=== PATIENT | female | born 1990 | race Caucasian/White ===

== ENCOUNTER 2019-07-02 15:23 | Outpatient (CLI) | payer OTHER, SELFPAY ==
--- NOTE | 2019-07-02 | US_ITS ---
WS: [id number] THYROID ULTRASOUND HISTORY: FATIGUE, HYPOTHYROID COMPARISON: None available. Right lobe: 4.9 cm x 1.6 cm x 1.6 cm. Volume: 6.4 cm3. Thyroid gland is slightly enlarged and heterogeneous with tiny micronodules. Increased vascularity. Left lobe: 4.8 cm x 1.6 cm x 1.5 cm. Volume: 6.1 cm3. Mildly enlarged gland with heterogeneity and tiny micronodules. Slight increased vascularity. Isthmus: 2.3 mm. US/US thyroid 43961 IMPRESSION: Findings suggestive of acute Javier's disease.
== END 2019-07-02 15:24 | disposition home or self-care (01) ==
LOC: RADOUTREAD 07-03 09:17
PROVIDERS: Family Provider Nurse Practitioner; Visit Provider Family Medicine
DX: Z76.89 Persons encountering health services in other specified circumstances (principal)

== ENCOUNTER 2020-01-07 18:27 | Outpatient (CLI) | payer OTHER, SELFPAY ==
[2020-01-07 18:30] VITALS: BMI 24.3
[2020-01-07 18:35] VITALS: BP 0/0
[2020-01-07 18:36] VITALS: BP 128/78; PULSE 107
[2020-01-07 18:44] VITALS: RESP 15; TEMP 36.2
--- NOTE | 2020-01-07 18:59 | PC.NURSE ---
Pt asked at this time if she is feeling any contractions. Pt stated she was not and asked if what we were picking up could be the baby kicking the monitor. This nurse explained how contractions show up on the monitor looking like a hill where when the baby kicks the monitor it looks more like a spike. Pt verbalized understanding.
[2020-01-07 19:44] VITALS: BP 118/80; PULSE 92
--- NOTE | 2020-01-07 20:04 | PC.NURSE ---
Talking to patient about discharge and the patient voices concern that we have been monitoring her in bed and that she does not have tightening when lying in bed but instead when sitting or standing. Offered to continue monitoring while having patient sit up in bed and patient agrees. FHT monitor discontinued, Baby reactive and without decelerations. Unable to keep on monitor in mother's new position.
--- NOTE | 2020-01-07 20:08 | PC.NURSE ---
Spoke to patient again regarding lack of contractions. Patient states she has not felt any tightening since being placed in throne position and requests to be monitored standing at bedside. Assisted patient to her feet and adjusted monitor. Reeducated on using marker when feeling tightening in the abdomen.
[2020-01-07 20:14] VITALS: BP 118/80; PULSE 92; RESP 16
== END 2020-01-07 19:57 | disposition home or self-care (01) ==
LOC: OPOB 18:28 → OBGYN 18:56
PROVIDERS: PCP Nurse Practitioner; Visit Provider Family Medicine
DX: O26.899 Other specified pregnancy related conditions, unspecified trimester (principal); Z3A.00 Weeks of gestation of pregnancy not specified; R10.9 Unspecified abdominal pain
CPT/HCPCS: 99211

== ENCOUNTER 2020-01-29 10:35 | Outpatient (CLI) | payer OTHER, SELFPAY ==
[2020-01-29] VITALS (18 sets, daily range): BP systolic 0–147; BP diastolic 0–79; PULSE 92–118; RESP 18; TEMP 36.8; BMI 25.2
[2020-01-29] MEDS: lactated ringers 1,000 ML 999 ML IV (11:21)
[2020-01-29 11:34] LABS: Bilirubin Urine Neg (NEGATIVE); Blood Urine Neg (Negative); Glucose Urine UA Norm (Normal); Ketones Urine Negative (Negative); Leukocyte Esterase Urine Negative (Negative); Nitrate Urine Negative (Negative); Protein Urine Neg (Negative); Specific Gravity, Urine 1.005 (1.005-1.030); Urine Appearance Clear (CLEAR); Urine Color Yellow (Yellow); Urobilinogen Urine Norm (Negative); pH Urine 7 (5-7)
[2020-01-29 11:44] LABS: Add Urine Culture? No; Bacteria Urine TRACE; Squamous Epithelial Cell Urine 0-4 (0-5)
[2020-01-29] MEDS: sodium chloride 0.9% 1,000 ML 999 ML IV (12:52)
== END 2020-01-29 14:10 | disposition home or self-care (01) ==
LOC: OPOB 10:39 → OBGYN 10:40
PROVIDERS: PCP Nurse Practitioner; Visit Provider Family Medicine
DX: O26.899 Other specified pregnancy related conditions, unspecified trimester (principal); Z3A.00 Weeks of gestation of pregnancy not specified; R19.7 Diarrhea, unspecified; R10.9 Unspecified abdominal pain
CPT/HCPCS: 81001; 96360; 99211; J7030

== ENCOUNTER 2020-02-03 07:47 | Outpatient (CLI) | payer OTHER, SELFPAY ==
[2020-02-03 08:05] VITALS: BP 157/91; PULSE 128
[2020-02-03 08:06] VITALS: BP 162/88; PULSE 124
[2020-02-03 08:09] VITALS: TEMP 36.7; BMI 25.2
[2020-02-03 08:32] VITALS: BP 137/76; PULSE 96
[2020-02-03 08:47] VITALS: BP 123/81; PULSE 101
[2020-02-03 08:48] LABS: Actim Prom Negative
[2020-02-03 09:10] VITALS: BP 123/81; PULSE 97; RESP 17; TEMP 36.7
== END 2020-02-03 09:10 | disposition home or self-care (01) ==
LOC: OPOB 07:53 → OBGYN 07:54
PROVIDERS: PCP Nurse Practitioner; Visit Provider Family Medicine
DX: O26.899 Other specified pregnancy related conditions, unspecified trimester (principal); Z3A.00 Weeks of gestation of pregnancy not specified; N89.8 Other specified noninflammatory disorders of vagina
CPT/HCPCS: 59025; 83986; 84112; 99211

== ENCOUNTER 2020-03-23 10:26 | Inpatient (IN) | payer OTHER, SELFPAY ==
[2020-03-23] VITALS (36 sets, daily range): BP systolic 0–151; BP diastolic 0–90; PULSE 67–109; RESP 15–20; TEMP 36.5–37.2; BMI 28.3
[2020-03-23 11:28] LABS: Basophils % 0.1 %; Eosinophils # 0.1 10^3/uL (0.0-0.8); Eosinophils % 0.7 %; Hematocrit 35.5 % (37.0-47.0); Hemoglobin 11.4 g/dL (11.5-15.3); Lymphocytes % 13.2 %; Mean Corpuscular HGB Conc 32.1 g/dL (30.0-36.0); Mean Corpuscular Hemoglobin 30.5 pg (28.0-34.0); Mean Corpuscular Volume 94.9 fL (81-99); Mean Platelet Volume 11.7 fL (7.4-10.4); Monocytes # 0.6 10^3/uL (0.2-0.9); Monocytes % 7.8 %; Neutrophils % 77.8 %; Nucleated Red Blood Cells % 0 %; Platelet Count 163 10^3/cmm (130-400); Red Blood Count 3.74 10^6/uL (4.1-5.3); Red Cell Distribution Width 12.8 % (12.1-15.1); White Blood Count 7.3 10^3/uL (4.0-10.0)
[2020-03-23] MEDS: miSOPROStol 100 mcg tablet 25 MCG VAGINAL (11:58)
[2020-03-23] MEDS: miSOPROStol 100 mcg tablet 25 MCG SUBLINGUAL (16:38)
[2020-03-23] MEDS: lactated ringers 1,000 ML 999 ML IV ×2 (18:08→20:37)
[2020-03-23] MEDS: oxytocin 30 UNIT/500 ML BAG 600 UNIT IV (20:37)
[2020-03-23] MEDS: lidocaine 2% INJ 20 mL INJECTION (20:38)
--- NOTE | 2020-03-23 20:57 | PM.DELIVERY ---
Delivery Note: Date of delivery: March 23, 2020 Pre-Delivery Course: The patient is a 29-year-old 1 at 39 weeks estimated gestational age who presented to the hospital with spontaneous rupture membranes. She had noticed some intermittent leaking the night prior. She came to my office where we found her to be nitrazine equivocal and ferning positive. As result we sent her to the hospital for induction. She had unremarkable . Her blood type was O+. She was GBS negative. Her Covid status is unknown. Her labor was induced with Cytotec sublingual. She then progressed to complete without difficulty. Delivery: DELIVERY: The patient progressed to complete without difficulty. She delivered a male with a weight of 7 pounds 14 ounces with Apgars of 8, 9. The baby was delivered from the HAYLEE position. The baby's mouth and nose were suctioned at the site of the perineum. The baby was then completely delivered and placed on the mother's abdomen. The cord was then clamped and cut. There was no nuchal cord. There was no meconium. The placenta and 3 vessel cord were delivered intact shortly thereafter. The perineum and vaginal vault were carefully examined. A second-degree posterior midline tear was noted. It was repaired with 3-0 Vicryl in a running stitch. Both the mother and the baby were in stable condition. Estimated blood loss was 200 mL Post-Delivery Status: Good A&P Assessment and plan (1) 39 weeks gestation of : I anticipate routine care. If all goes well, she should build to go home tomorrow evening. Status: Acute (2) Spontaneous rupture of membranes: Status: Acute Coding Level of Care Code Acute Engineering Clerk for Chg Fwd Diagnoses 39 weeks gestation of Z3A.39 Spontaneous rupture of membranes
[2020-03-24] VITALS (7 sets, daily range): BP systolic 105–134; BP diastolic 60–79; PULSE 67–116; RESP 14–18; TEMP 37–37.1; O2SAT 96–97
--- NOTE | 2020-03-24 07:59 | PC.NURSE ---
Addendum entered by Bouchra Henson RN 03/24/20 08:06: This all happened between 07:00 and 07:25 Original Note: note This mom preparing to fed. Reports baby not latching well. Noted baby having noisy respirations, grunting some. Respiratory rate was fast about 100/min. Mild subcostal retractions. Took baby to nursery, Dr Sosa saw baby and wanted pulse ox. Respirations still about 90, with mild subcostal retractions. O2 sat = 88. Started Flow by and notified Dr. Sosa. He will be up to see baby again, we are to start O2 rome or nasal cannula. Baby left with Pilo GRULLON
[2020-03-24] MEDS: ibuprofen 800 mg tablet PO ×3 (09:26→20:55)
[2020-03-24] MEDS: prenatal vitamin Capsule 1 CAP PO (09:26)
[2020-03-24] MEDS: docusate sodium 100 mg Capsule PO ×2 (09:26→18:50)
[2020-03-24] MEDS: lanolin oint 7 gm 1 APPLIC TOPICAL (09:27)
[2020-03-24] MEDS: benzocaine-menthol 78 gm Canister 1 SPRAY TOPICAL (09:27)
[2020-03-24 10:00] LABS: Hematocrit 32.7 % (37.0-47.0); Hemoglobin 10.5 g/dL (11.5-15.3); Mean Corpuscular HGB Conc 32.1 g/dL (30.0-36.0); Mean Corpuscular Hemoglobin 30.8 pg (28.0-34.0); Mean Corpuscular Volume 95.9 fL (81-99); Platelet Count 110 10^3/cmm (130-400); Red Blood Count 3.41 10^6/uL (4.1-5.3); Red Cell Distribution Width 12.9 % (12.1-15.1); White Blood Count 12.3 10^3/uL (4.0-10.0)
[2020-03-24] MEDS: levothyroxine 150 mcg Tablet 75 MCG PO (11:36)
--- NOTE | 2020-03-24 18:21 | PM.OBGYPN ---
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 Her bleeding is within normal limits. Her pain is well controlled. Baby is not interested in breast-feeding at this time, and has been in the NICU due to tachypnea and hypoxia. Labor: Station: +1 Amniotic Membrane Status: Ruptured Monitor Mode: External Contraction Pattern: Regular Status: Category l Vitals/I&O/Wt Last Vital Signs Temp 98.6 F 03/24/20 06:52 Pulse 116 H 03/24/20 15:30 Resp 14 03/24/20 15:30 BP 107/60 03/24/20 15:30 Pulse Ox 96 03/24/20 02:25 03/24/20 03/24/20 03/24/20 06:59 14:59 22:59 Intake Total 1200 / 1200 Output Total 900 / 900 Balance -900 / 1220.0 1200 / 1200 Weight last 48 hrs Weight 170 lb Physical Exam Narrative: EXAM NARRATIVE: The patient is alert. She appears comfortable. Her heart has a regular rate and rhythm with no murmurs appreciated. Lungs are clear to auscultation bilaterally. Her fundus is firm and below the umbilicus. Data : 03/24/20 09:32 A&P Assessment and plan (1) Spontaneous vaginal delivery: Status: Acute Attestations Medical Necessity Statement*: Anticipate discharge tomorrow if the patient continues to do well. Coding Level of Care Code Acute Food Safety Coordinator for Chg Fwd Diagnoses Spontaneous vaginal delivery O80
[2020-03-25 03:42] VITALS: BP 99/58; PULSE 93; RESP 16; TEMP 36.8; O2SAT 97
--- NOTE | 2020-03-25 07:46 | P.DS_ITS ---
Discharge Providers LUBRICATION EQUIPMENT SERVICER Date of Admission: 03/23/20 10:26 Date of Discharge: 03/25/20 Attending Provider at Admission: Jovani Sosa MD Attending Provider at Discharge: Jovani Sosa MD Primary Care Provider: Jovani Sosa MD Diagnoses at Discharge Discharge Diagnosis (1) Spontaneous vaginal delivery: Status: Acute Reason for Visit Reason for Visit: SROM Hospital Course Hospital Course: The patient had an unremarkable hospital stay. She presented to the hospital with spontaneous rupture membranes. She was not cherry and she was placed on Cytotec 25 mcg. She progressed to complete and had an unremarkable vaginal delivery. Her course has also been unremarkable. Her bleeding has been within normal limits. Her pain is been well controlled. She has been breast-feeding well. Her baby did have some difficulty breathing and was not feeding well at first but is now currently doing very well. Information Peripartum Data: Infant Delivery Method: Vaginal Physical Exam Narrative: EXAM NARRATIVE: The patient is alert. She appears comfortable. Her heart has a regular rate and rhythm with no murmurs appreciated. Lungs are clear to auscultation bilaterally. Her fundus is firm and below the umbilicus. Discharge Data Data Completed and Pending: Labs from last 24 hours 03/24/20 09:32 WBC 12.3 H RBC 3.41 L Hgb 10.5 L Hct 32.7 L MCV 95.9 MCH 30.8 MCHC 32.1 RDW 12.9 Plt Count 110 L MPV 12.0 H Vitals: Last Vital Signs Temp 98.3 F 03/25/20 03:42 Pulse 93 03/25/20 03:42 Resp 16 03/25/20 03:42 BP 99/58 03/25/20 03:42 Pulse Ox 97 03/25/20 03:42 Discharge Plan Discharge Patient Disposition: Home Condition: Stable Prescriptions: New ibuprofen 800 mg Tablet 800 mg PO TID Qty: 30 RF: 0 Continued 1 tab PO DAILY RF: 0 Metamucil 3.4 gram/5.4 gram Powder 1 tsp PO DAILY RF: 0 Changed levothyroxine 75 mcg PO DAILY Qty: 30 RF: 0 Discharge Orders: Discharge Order (Routine); Ordered 03/25/20 Ordered By: Jovani Sosa Referrals: Jovani Sosa MD [Primary Care Provider] - 6 Weeks Discharge Diet: Usual diet Discharge Activity: Limit activity as instructed Discharge Attestations LUBRICATION EQUIPMENT SERVICER Time Spent in Discharge Care*: less than 30 min Coding Level of Care Code 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
[2020-03-25] MEDS: docusate sodium 100 mg Capsule PO (09:05)
[2020-03-25] MEDS: levothyroxine 150 mcg Tablet 75 MCG PO (09:05)
[2020-03-25] MEDS: prenatal vitamin Capsule 1 CAP PO (09:05)
[2020-03-25 10:10] VITALS: BP 130/78; PULSE 97; RESP 18; TEMP 36.6; O2SAT 96
[2020-03-25 10:50] VITALS: BP 130/78; PULSE 97; RESP 18; TEMP 36.6; O2SAT 96
--- NOTE | 2020-03-25 10:51 | PC.NURSE ---
At discharge patient is staying as a guest with infant. Infant not being discharged at this time.
== END 2020-03-25 10:45 | disposition home or self-care (01) | DRG 807 ==
LOC: OPOB 10:41 → OBGYN 10:43 → OPOB 11:39 → OBGYN 11:39
PROVIDERS: Admitting Provider Family Medicine; PCP Family Medicine; Visit Provider Family Medicine
DX: O42.02 Full-term premature rupture of membranes, onset of labor within 24 hours of rupture (principal); Z37.0 Single live birth; Z3A.39 39 weeks gestation of pregnancy; O70.1 Second degree perineal laceration during delivery
CPT/HCPCS: 12345; 36415; 59025; 59409; 85025; 85027; 99211

== ENCOUNTER → 2020-08-03 15:21 | Outpatient (BNVA) | payer OTHER, SELFPAY | PROVIDERS: PCP Family Medicine; Visit Provider Internal Medicine | DX: E03.9 Hypothyroidism, unspecified (principal); E04.1 Nontoxic single thyroid nodule; E06.3 Autoimmune thyroiditis | CPT/HCPCS: 99204 ==

== ENCOUNTER 2020-08-22 07:08 | Outpatient (CLI) | payer OTHER, SELFPAY ==
--- NOTE | 2020-08-22 07:15 | US_ITS ---
WS: [id number] THYROID ULTRASOUND (TI-RADS CRITERIA) History: Enlarged thyroid. Hoarseness.. Technique: Ultrasound examination of the thyroid and adjacent soft tissues is performed. FINDINGS: Right lobe: 4.6 cm x 1.8 cm x 1.7 cm. Volume: 7.2 cm3. Gland is slightly enlarged and heterogeneous. No nodule. Slight increased vascularity. Left lobe: 4.2 cm x 2.1 cm x 1.3 cm. Volume: 6.0 cm3. Slightly enlarged gland with heterogeneous echotexture. No nodule. Slight increased echogenicity. Isthmus: 0.2 cm. Mild bilateral cervical chain enlarged lymph nodes. Echotexture of the lymph nodes is otherwise mathew l. US/US thyroid 15311 Impression: Mildly enlarged thyroid with no nodule.
== END 2020-08-22 07:09 | disposition home or self-care (01) ==
LOC: US 07:10
PROVIDERS: PCP Family Medicine; Visit Provider Internal Medicine
DX: E04.9 Nontoxic goiter, unspecified (principal)
CPT/HCPCS: 76536

== ENCOUNTER 2021-09-13 00:17 | Emergency (ER) | payer BC, SELFPAY ==
--- NOTE | 2021-09-13 00:19 | ED_ITS ---
HPI - Abdominal Pain General: Chief Complaint: Abdominal Pain Stated Complaint: Severe ABD pain/fever Time Seen by Provider: 09/13/21 00:18 History of Present Illness: Ms. 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 Symptom onset was approximately 6-7 hours ago and subacute. She denies specific known provoking event. Initially symptoms were moderate however have since worsened. She has had associated nausea and vomiting with multiple episodes of nonbloody emesis. She reports chronic diarrhea secondary to celiac disease which is unchanged. She denies alcohol misuse. Symptom character is sharp and stabbing. Intensity is currently severe. Overall course of symptoms has been worsening. Menstrual periods started today. Patient does have a history of cholecystectomy. No other specific changes in health, exacerbating, or alleviating factors identified. Onset (ago): hour(s) Pain Consistency: constant Location: Epigastric Severity: severe Quality: stabbing and sharp Radiation: none Migration to: no migration Associated Symptoms: Reports nausea and vomiting Related Data: Date of Last Menstrual Period: 06/24/19 Review of Systems General: Reports: 10 or more systems reviewed and unremarkable except in HPI and below GI: Reports: nausea and vomiting PFSH ED PFSH: Medical History Javier's disease Surgical History History of cholecystectomy History of lumpectomy of both breasts Family History Mother Hypertension Thyroid disease Father Diabetes Thyroid disease Social History Smoking and tobacco status: never smoked Second hand smoke exposure: No Alcohol intake: current Alcohol intake frequency: holidays/special occasions only Female Reproductive History: Date of last menstrual period: 06/24/19 Physical Exam Const: COMMON NORMALS: alert GENERAL APPEARANCE: cooperative, well developed, in distress (Pain) and ill appearing (Mildly) HENMT: COMMON NORMALS: normocephalic and atraumatic HEAD & SCALP: normocephalic and atraumatic Eye: COMMON NORMALS: conjunctivae normal CONJUNCTIVA: Yes conjunctivae normal SCLERA: sclerae normal Neck/C-Spine: COMMON NORMALS: supple GENERAL: Yes trachea midline Resp: COMMON NORMALS: clear to auscultation bilaterally EFFORT & INSPECTION: Yes able to speak in complete sentences AUSCULTATION: clear to auscultation bilaterally Cardio: COMMON NORMALS: regular rhythm RATE: tachycardic RHYTHM: regular rhythm GI: COMMON NORMALS: Soft to palpation PALPATION: Yes Soft to palpation, Yes Tenderness to palpation present (GI), No Guarding due to palpation present (GI) and No Rigid due to palpation PERCUSSION: normal to percussion Extremity: GENERAL: Yes normal exam except as noted and No edema Neuro: COMMON NORMALS: moves all extremities SENSORIUM/ORIENTATION: Yes alert and No Orientation impaired Psych: COMMON NORMALS: mental status grossly normal and Normal thought process present THOUGHT PROCESS: Normal thought process present Course ED course: - Patient was seen and evaluated by me at bedside - Patient placed on cardiac monitors, IV access obtained - Initial evaluation notable for exam as above, epigastric tenderness with tachycardia and ill appearance - Labs and xrays personally interpreted by me. EKG from 0031 interpreted by me and shows sinus tachycardia. No STEMI. No S1Q3T3. - Fluids, antiemetic, and analgesia ordered (patient declined fentanyl in favor of Toradol) - Labs notable for leukocytosis and hemoconcentration which is fairly significant compared to baseline hemoglobin in chart. Metabolic panel without acute electrolyte derangement. There is transaminitis and mildly elevated lipase. Urinalysis with hematuria though patient does note being on her period. Flu and Covid rapid negative, hepatitis panel pending. - Imaging notable for chest x-ray without lobar consolidation or pneumothorax. Several small bowel loops that are fluid filled and mildly prominent, favoring gastroenteritis versus possible developing small bowel obstruction. Given transaminitis and elevated lipase ultrasound of right upper quadrant was ordered and does not demonstrate ductal dilation. Patient has history of cholecystectomy. - Upon serial reexamination after treatment the patient was improved with fluids and symptom treatment. The patient still intermittently has mild tachycardia ho wever he is observed to have sinus rhythm in the 80s and 90s as well. - Based on patient history, evaluation, and testing as interpreted the most likely cause of the patient's condition is enteritis with local irritation/dehydration resulting in laboratory abnormalities. I did discuss the possibility of early developing small bowel obstruction with strict return precautions with the patient, she desires to discharge. - The results of ED evaluation were discussed with the patient including presc riptions and/or symptomatic cares (if applicable) including appropriate and responsible use, followup plan, and return precautions. The patient verbalized understanding and felt safe for discharge. - Patient discharged in satisfactory condition. Note: Click bubbles or prepopulated arciniega in note writing are used for assistance with data collection and billing and are inherently more limited than narrative and other text portions of this note. Please use narrative for additional clinical history and defer to narrative/free test for any case of contradictory information. If information appears in only free text or click bubble it should be considered present or absent as reported. Please contact note story writer for clarifications of clinical information or contradictory information. MDM is a brief summary, contradictory or erroneous seeming information should be clarified and full note should be reviewed. Vital Signs: Vital signs: Vital Signs Temperature 98.2 F 09/13/21 00:22 Pulse Rate 107 H 09/13/21 03:10 Respiratory Rate 18 09/13/21 03:10 Blood Pressure 119/69 09/13/21 03:10 Pulse Oximetry 98 09/13/21 01:43 MDM - Abdominal Pain Medical Decision Making 30-year-old lady presenting with epigastric abdominal pain, nausea, vomiting. Patient improved with fluids and symptom treatment. Labs notable for dehydration, there is also mild transaminitis and elevated lipase. CT with enteritis versus very early developing small bowel obstruction. Patient desires discharge and given strict return precautions. Given history of celiac will refer for GI follow-up. Discharged with prescription for Zofran. Medical Records I reviewed the patient's medical records. Lab Data I reviewed the patient's lab results. : 09/13/21 00:25 09/13/21 00:52 Labs/Radiology: Radiology Impressions Abdomen/Pelvis CT 09/13/21 00:26 IMPRESSION: 1. Several small bowel loops are are fluid-filled and borderline/mildly prominent in size, see above discussion. This appearance could be secondary to some form of gastroenteritis. If there is concern for small bowel obstruction, follow-up may be useful. 2. No free intraperitoneal air. 3. Prior cholecystectomy, no significant biliary tree dilation. 4. Normal appendix. 5. No hydronephrosis of either kidney. No visible renal or ureteral calculus. 6. Other findings discussed above. Chest X-Ray 09/13/21 00:26 IMPRESSION: 1. Essentially unremarkable single view chest. 2. Other findings discussed above. Abdomen Ultrasound 09/13/21 01:50 IMPRESSION: 1. Prior cholecystectomy, no significant biliary tree dilation. 2. Other details/findings discussed above. Laboratory Results WBC 12.6 10^3/uL (4.0-10.0) H 09/13/21 00:25 RBC 4.75 10^6/uL (4.1-5.3) 09/13/21 00:25 Hgb 15.5 g/dL (11.5-15.3) H 09/13/21 00:25 Hct 45.1 % (37.0-47.0) 09/13/21 00:25 MCV 94.9 fl (81-99) 09/13/21 00:25 MCH 32.6 pg (28.0-34.0) 09/13/21 00:25 MCHC 34.4 g/dL (30.0-36.0) 09/13/21 00:25 RDW 11.9 % (12.1-15.1) L 09/13/21 00:25 Plt Count 176 10^3/cmm (130-400) 09/13/21 00:25 MPV 11.1 fL (7.4-10.4) H 09/13/21 00:25 Neut % (Auto) 89.2 % 09/13/21 00:25 Lymph % (Auto) 5.2 % 09/13/21 00:25 Martin % (Auto) 4.8 % 09/13/21 00:25 Eos % (Auto) 0.4 % 09/13/21 00:25 Baso % (Auto) 0.2 % 09/13/21 00:25 Neut # (Auto) 11.24 10^3/uL (1.8-7.7) H 09/13/21 00:25 Lymph # (Auto) 0.7 10^3/uL (0.8-4.8) L 09/13/21 00:25 Martin # (Auto) 0.6 10^3/uL (0.2-0.9) 09/13/21 00:25 Eos # (Auto) 0.1 10^3/uL (0.0-0.8) 09/13/21 00:25 Baso # (Auto) 0.0 10^3/uL (0.0-0.1) 09/13/21 00:25 Nucleated RBC % (auto) 0 % 09/13/21 00:25 Nucleated RBCs # 0.0 /100WBC 09/13/21 00:25 Sodium 140 mmol/L (136-145) 09/13/21 00:52 Potassium 4.0 mmol/L (3.5-5.1) 09/13/21 00:52 Chloride 106 mmol/L (98-107) 09/13/21 00:52 Carbon Dioxide 23 mmol/L (22-29) 09/13/21 00:52 Anion Gap 15.0 (5-19) 09/13/21 00:52 BUN 19 mg/dL (6-20) 09/13/21 00:52 Creatinine 0.8 mg/dL (0.5-0.9) 09/13/21 00:52 GFR Calculation 84.8 mL/min (90-130) L 09/13/21 00:52 Glucose 134 mg/dL (65-115) H 09/13/21 00:52 Calculated Osmolality 294 mOsm/kg (285-295) 09/13/21 00:52 Calcium 9.7 mg/dL (8.5-10.5) 09/13/21 00:52 Total Bilirubin 1.1 mg/dL (0.15-1.2) 09/13/21 00:52 AST 219 U/L (0-32) H 09/13/21 00:52 ALT 143 U/L (0-33) H 09/13/21 00:52 Alkaline Phosphatase 111 IU/L (35-105) H 09/13/21 00:52 Total Protein 6.3 g/dL (6.6-8.7) L 09/13/21 00:52 Albumin 4.5 g/dL (3.5-5.2) 09/13/21 00:52 Globulin 1.8 g/dL (1.3-4.6) 09/13/21 00:52 Lipase 115 U/L (13-60) H 09/13/21 00:52 TSH 2.42 uIU/mL (0.27-4.20) 09/13/21 00:52 HCG, Qual Negative (Negative) 09/13/21 00:52 Urine Color Yellow (Yellow) 09/13/21 01:38 Urine Appearance Clear (CLEAR) 09/13/21 01:38 Urine pH 8 (5-7) H 09/13/21 01:38 Ur Specific [place] 1.010 (1.005-1.030) 09/13/21 01:38 Urine Protein Neg (Negative) 09/13/21 01:38 Urine Glucose (UA) Norm (Normal) 09/13/21 01:38 Urine Ketones 1+ (Negative) H 09/13/21 01:38 Urine Blood 2+ (Negative) H 09/13/21 01:38 Urine Nitrate Negative (Negative) 09/13/21 01:38 Urine Bilirubin Neg (Negative) 09/13/21 01:38 Prot Sulfosalicylic Acd Negative (Negative) 09/13/21 01:38 Urine Urobilinogen 1 mg/dL (Negative) H 09/13/21 01:38 Ur Leukocyte Esterase Negative (Negative) 09/13/21 01:38 Urine RBC 5-10 /hpf (0-2) H 09/13/21 01:38 Urine WBC 0-4 /hpf (0-5) H 09/13/21 01:38 Ur Squamous Epith Cells 0-4 /hpf (0-5) H 09/13/21 01:38 Amorphous Sediment Not Reportable 09/13/21 01:38 Urine Bacteria Trace /hpf (NONE) 09/13/21 01:38 Urine Mucus 1+ /hpf 09/13/21 01:38 Hep Bs Antigen Non-reactive (Nonreactive) 09/13/21 00:52 Hep B Core IgM Ab Non-reactive (Nonreactive) 09/13/21 00:52 Influenza Type A Ag Negative (Negative) 09/13/21 03:10 Influenza Type B Ag Negative (Negative) 09/13/21 03:10 SARS-CoV-2 Ag (Rapid) Negative (Negative) 09/13/21 03:10 Discharge Plan Discharge Patient Disposition: Home Clinical Impression: Enteritis, Leukocytosis, Dehydration, Elevated liver transaminase level, Elevated lipase, Hematuria Condition: Stable Prescriptions: New ondansetron 4 mg tablet,disintegrating 4 mg PO Q8H PRN (Reason: nausea and vomiting) Qty: 15 0RF No Action levothyroxine 88 mcg capsule 88 mcg PO DAILY Qty: 90 3RF 1 tab PO DAILY 0RF ibuprofen 800 mg Tablet 800 mg PO TID Qty: 30 0RF levothyroxine 75 mcg PO DAILY Qty: 30 0RF Metamucil 3.4 gram/5.4 gram powder 1 tsp PO DAILY PRN0RF Discharge Orders: Discharge ED (Routine); Ordered 09/13/21 Ordered By: Oj Cleaning Referrals: Jovani Sosa MD [Primary Care Provider] - Discharge Diet: Clear Liquid Discharge Activity: Increase activity as tolerated Patient Instructions: Pancreatitis (ED), Dehydration (ED), Acute Nausea and Vomiting (ED), Abdominal Pain (ED), Enteritis (ED) Activity Restrictions/Additional Instructions: Thank you for visiting the emergency department. You were seen and evaluated for abdominal pain, nausea, vomiting. The exact cause of your symptoms is somewhat unclear, as discussed you were found to have enteritis versus possibly very early developing small bowel obstruction. You showed evidence of dehydration as well as elevated lipase and transaminases. Please ensure that you are staying hydrated, you will be given a prescription for antinausea medication, additionally stick to clear liquid for the next few days and then advance as tolerated. Please follow-up with your primary care provider within 1 week for repeat laboratory studies to ensure normalization. Please return to the emergency department for worsening symptoms, uncontrolled pain, inability to tolerate oral intake, fevers, shortness of breath, chest pain, or anything else that you are concerned about and feel needs emergency department evaluation. Coding Level of Care Code ED Patient Service Representative for Una Loo Exam Comprehensive
[2021-09-13 00:22] VITALS: PULSE 137; RESP 24; TEMP 36.8; O2SAT 100; BMI 21.6
--- NOTE | 2021-09-13 00:26 | CTR_ITS ---
PROCEDURE INFORMATION: Exam: CT Abdomen And Pelvis Without Contrast Exam date and time: 09/13/2021 1:03 AM Age: 30 years old Clinical indication: Abdominal pain; Epigastric; Prior surgery; Surgery date: 6+ months; Surgery type: Christina; Additional info: Severe epigastric abdominal pain, contrast allergy TECHNIQUE: Imaging protocol: Computed tomography of the abdomen and pelvis without contrast. Radiation optimization: All CT scans at this facility use at least one of these dose optimization techniques: automated exposure control; mA and/or kV adjustment per patient size (includes targeted exams where dose is matched to clinical indication); or iterative reconstruction. COMPARISON: CT abdomen pelvis wo con [id number] 12/28/2017 3:16 AM RADIATION DOSE METRICS: Total DLP (mGy-cm): 842.05 FINDINGS: Lungs: The lung bases are clear. Liver: Unremarkable. Gallbladder and bile ducts: Prior cholecystectomy, no significant biliary tree dilation. Pancreas: Unremarkable. Spleen: Unremarkable. Adrenal glands: Unremarkable. Kidneys and ureters: No hydronephrosis of either kidney. No visible renal or ureteral calculus. No perinephric fluid. Stomach and bowel: Several small bowel loops are are fluid-filled and borderline/mildly prominent in size. The overall appearance is not strongly suggestive of significant small bowel obstruction at this time. An early/partial small bowel obstruction is difficult to entirely exclude. This appearance could be secondary to some form of gastroenteritis. Please correlate clinically. If there is clinical suspicion for small bowel obstruction, follow-up may be helpful to exclude progression. There are no CT findings to strongly suggest diverticulitis. Appendix: The appendix is visualized and appears normal. Intraperitoneal space: No free intraperitoneal air, or ascites. Arteries: No evidence for abdominal aortic aneurysm. Lymph nodes: No retroperitoneal adenopathy. Urinary bladder: Unremarkable as visualized. Reproductive: No definite abnormal ovarian/adnexal cyst or mass by CT. Bones/joints: No significant acute finding. Soft tissues: No significant acute finding. CT/CT abdomen pelvis wo con [id number] IMPRESSION: 1. Several small bowel loops are are fluid-filled and borderline/mildly prominent in size, see above discussion. This appearance could be secondary to some form of gastroenteritis. If there is concern for small bowel obstruction, follow-up may be useful. 2. No free intraperitoneal air. 3. Prior cholecystectomy, no significant biliary tree dilation. 4. Normal appendix. 5. No hydronephrosis of either kidney. No visible renal or ureteral calculus. 6. Other findings discussed above.
--- NOTE | 2021-09-13 00:26 | XRR_ITS ---
PROCEDURE INFORMATION: Exam: XR Chest Exam date and time: 09/13/2021 12:53 AM Age: 30 years old Clinical indication: Prior surgery; Surgery type: Gb; Patient HX: Epigastric pain with tachycardia. ; Additional info: Epigastric pain, tachycardia TECHNIQUE: Imaging protocol: XR of the chest. Views: 1 view. COMPARISON: No relevant prior studies available. FINDINGS: Lungs: No CHF/pulmonary edema. Visible lungs appear essentially clear. Pleural spaces: No visible pneumothorax. No definite pleural fluid. Heart/Mediastinum: Heart size is within normal limits. Bones/joints: No significant acute finding. XR/XR chest 1V portable [id number] IMPRESSION: 1. Essentially unremarkable single view chest. 2. Other findings discussed above.
[2021-09-13] MEDS: lactated ringers 1,000 ML 999 ML IV ×2 (00:34→02:02)
[2021-09-13] MEDS: ondansetron 2 mg/ML SDV 2 mL 4 MG IVP ×3 (00:34→04:33)
[2021-09-13 00:35] LABS: Basophils % 0.2 %; Eosinophils # 0.1 10^3/uL (0.0-0.8); Eosinophils % 0.4 %; Hematocrit 45.1 % (37.0-47.0); Hemoglobin 15.5 g/dL (11.5-15.3); Lymphocytes # 0.7 10^3/uL (0.8-4.8); Lymphocytes % 5.2 %; Mean Corpuscular HGB Conc 34.4 g/dL (30.0-36.0); Mean Corpuscular Hemoglobin 32.6 pg (28.0-34.0); Mean Corpuscular Volume 94.9 fl (81-99); Mean Platelet Volume 11.1 fL (7.4-10.4); Monocytes # 0.6 10^3/uL (0.2-0.9); Monocytes % 4.8 %; Neutrophils # 11.24 10^3/uL (1.8-7.7); Neutrophils % 89.2 %; Nucleated Red Blood Cells % 0 %; Platelet Count 176 10^3/cmm (130-400); Red Blood Count 4.75 10^6/uL (4.1-5.3); Red Cell Distribution Width 11.9 % (12.1-15.1); White Blood Count 12.6 10^3/uL (4.0-10.0)
[2021-09-13] MEDS: ketorolac 30 mg/mL INJ 15 MG IVP (00:45)
--- NOTE | 2021-09-13 00:45 | ECG_ITS ---
[facility] Test Date: 2021-09-13 Pat Name: Ashley Damian Department: Room: Gender: Female Paper Feeder: : 1990 Requested By: [employer] Order Number: [id number] Kevin MD: Savage Jha M.D. Measurements Intervals Ailey Rate: 119 P: 82 VT: 129 QRS: 84 QRSD: 76 T: 28 QT: 340 QTc: 478 Interpretive Statements SINUS TACHYCARDIA NONSPECIFIC ST & T-WAVE ABNORMALITY ABNORMAL RHYTHM ECG No previous ECG available for comparison Electronically Signed On 09-13-2021 23:30:41 CDT by Savage Jha M.D. [id number] f
[2021-09-13 00:47] VITALS: PULSE 108; RESP 20; O2SAT 100
[2021-09-13 01:17] LABS: Alanine Aminotransferase 143 U/L (0-33); Albumin Level 4.5 g/dL (3.5-5.2); Alkaline Phosphatase 111 IU/L (35-105); Aspartate Amino Transferase 219 U/L (0-32); Blood Urea Nitrogen 19 mg/dL (6-20); Calcium 9.7 mg/dL (8.5-10.5); Carbon Dioxide 23 mmol/L (22-29); Chloride 106 mmol/L (98-107); Globulin 1.8 g/dL (1.3-4.6); Glomerular Filtration Rate 84.8 mL/min (90-130); Glucose 134 mg/dL (65-115); Lipase 115 U/L (13-60); Osmolality Calculated 294 mOsm/kg (285-295); Sodium 140 mmol/L (136-145); Total Bilirubin 1.1 mg/dL (0.15-1.2); Total Protein 6.3 g/dL (6.6-8.7)
[2021-09-13 01:22] LABS: HCG, Serum Qual Negative (Negative)
[2021-09-13 01:43] VITALS: BP 117/71; PULSE 89; RESP 16; O2SAT 98
--- NOTE | 2021-09-13 01:50 | USR_ITS ---
PROCEDURE INFORMATION: Exam: US Abdomen, Limited; Right Upper Quadrant Exam date and time: 09/13/2021 2:48 AM Age: 30 years old Clinical indication: Abdominal pain; Acute; Prior surgery; Surgery date: 6+ months; Surgery type: Colecystectomy; Additional info: Ruq, eval common bile duct, pain HX cholecystectomy, mildly elevated lipase and transaminases TECHNIQUE: Imaging protocol: US abdomen. Real time ultrasound with image documentation. Limited exam focused on the right upper quadrant. COMPARISON: CT Abdomen/Pelvis 09/13/2021 1:03 AM FINDINGS: Liver: Essentially unremarkable sonographic appearance of the liver. Gallbladder: Prior cholecystectomy. Common bile duct: No significant biliary dilation, common duct measures 7.2 mm. Pancreas: Visible pancreas unremarkable. Right kidney: Images of the right kidney show no hydronephrosis. US/US abdomen limited [id number] IMPRESSION: 1. Prior cholecystectomy, no significant biliary tree dilation. 2. Other details/findings discussed above.
[2021-09-13 02:09] LABS: Bilirubin Urine Neg (Negative); Blood Urine 2+ (Negative); Glucose Urine UA Norm (Normal); Ketones Urine 1+ (Negative); Nitrate Urine Negative (Negative); Protein Urine Neg (Negative); Sulfosalicylic Acid Urine Negative (Negative); Urine Appearance Clear (CLEAR); Urine Color Yellow (Yellow); pH Urine 8 (5-7)
[2021-09-13 02:10] LABS: Add Urine Culture? No; Add Urine Microscopic? YES; Bacteria Urine TRACE /hpf; Leukocyte Esterase Urine Negative (Negative); Mucus Urine 1+ /hpf; Squamous Epithelial Cell Urine 0-4 /hpf (0-5); Urobilinogen Urine 1 mg/dL (Negative); WBC Urine 0-4 /hpf (0-5)
[2021-09-13 02:36] LABS: Thyroid Stimulating Hormone 2.42 uIU/mL (0.27-4.20)
[2021-09-13 03:10] VITALS: BP 119/69; PULSE 107; RESP 18
[2021-09-13 03:50] LABS: Hepatitis B Core IgM Non-Reactive (Nonreactive); Hepatitis B Surface Antigen Non-Reactive (Nonreactive)
[2021-09-13 03:53] LABS: Influenza A by IFA Negative (Negative); Influenza B by IFA Negative (Negative); SARS Covid-2 Antigen Negative (Negative)
[2021-09-13 04:26] VITALS: BP 120/63; PULSE 106; O2SAT 97
--- NOTE | 2021-09-13 06:43 | DCPLANNER ---
Addendum entered by Zayda Kaiser 09/21/21 10:30: manager steel was notified by Internal Medicine that when clinic called to schedule an appointment with patient, that she stated that she would follow up with her primary care physician. Addendum entered by Zayda Kaiser 09/21/21 08:41: manager steel sent patients information to the front office staff at Dr. Chaudhari office, to just check on referral. Original Note: manager steel had message to schedule a follow up appointment for patient with Dr. Zavala. manager steel sent patients information to front office staff of Internal Medicine for review. Patients information will be printed and reviewed. Clinic will call patient with appointment information.
[2021-09-13 11:41] LABS: Hepatitis C Virus Antibody Non-Reactive (Nonreactive)
== END 2021-09-13 04:31 | disposition home or self-care (01) ==
PROVIDERS: Emergency Provider Emergency Medicine; PCP Family Medicine
DX: K52.9 Noninfective gastroenteritis and colitis, unspecified (principal); E86.0 Dehydration; D72.829 Elevated white blood cell count, unspecified; R31.9 Hematuria, unspecified; R74.01 Elevation of levels of liver transaminase levels
CPT/HCPCS: 71045; 74176; 76705; 80053; 80074; 81001; 83690; 84443; 84703; 85025; 87426; 87804; 93005; 96374; 96375; 96376; 99284; J1885; J2405

== ENCOUNTER 2021-09-13 09:27 | Observation (INO) | payer BC, SELFPAY ==
[2021-09-13 09:37] VITALS: BP 126/72; PULSE 79; RESP 22; TEMP 36.8; O2SAT 100; BMI 22.4
--- NOTE | 2021-09-13 09:48 | ED_ITS ---
Documented by User: JOE Reeder 09/13/21 14:07 HPI - Abdominal Pain General: Chief Complaint: Abdominal Pain Stated Complaint: severe abdominal pain/nausea Time Seen by Provider: 09/13/21 09:29 Source: patient and family () Mode of arrival: ambulatory Limitations: no limitations History of Present Illness: Patient is a 30-year-old female presents to ED today along with her for concerns of continued and progressively worsening abdominal pains. Patient was seen at our facility early this morning for complaints of abdominal pains. She was found to have elevated LFTs and lipase. US was normal-she has had a previous cholecystectomy. US did not show any significant ductal dilation. CT scan of the abdomen/pelvis without contrast (patient has an anaphylactic reaction to contrast) showed fluid-filled small bowel loops could be secondary to gastroenteritis but also recommended follow-up if there is concern for small bowel obstruction. Patient has been states she was feeling better prior to her discharge but states several hours after she got home the pain came back in worsening intensity. She states she is continuing to vomit. gave her Zofran prior to arrival to the ED. She states last bowel movement was a few days ago. Reports chronic diarrhea secondary to Celiac Disease. Patient is not running fevers. No urinary complaints or flank pain. MD elicited complaint: abdominal pain Onset (ago): day(s) (yesterday) Pain Consistency: constant Location: Diffuse Severity: severe Pain scale (0-10): 10 Quality: cramping and stabbing Radiation: none Migration to: no migration Associated Symptoms: Reports bloating, constipation, GI cramping, nausea and vomiting; Denies chills, coffee ground emesis, diarrhea, dysuria, fever(s), hematuria and hematemesis Related Data: Date of Last Menstrual Period: 06/24/19 Patient : No Review of Systems Const: Denies: fever(s), chills, body aches, fatigue or malaise Card: Denies: chest pain Resp: Denies: dyspnea GI: Reports: abdominal pain, nausea, vomiting, constipation, bloating and GI cramping; Denies: hematemesis, coffee ground emesis or diarrhea : Denies: flank pain, dysuria or hematuria Musc: Denies: neck pain, back pain, extremity pain or joint pain Skin/Breast: Denies: rash Neuro: Denies: headache(s) or dizziness PFS ED PFSH: 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 Surgical History History of cholecystectomy History of lumpectomy of both breasts Family History Mother Hypertension Thyroid disease Father Diabetes Thyroid disease Social History Smoking and tobacco status: never smoked Second hand smoke exposure: No Alcohol intake: current Alcohol intake frequency: holidays/special occasions only Female Reproductive History: Date of last menstrual period: 06/24/19 Physical Exam Const: COMMON NORMALS: patient oriented x3, healthy appearing, alert and well nourished GENERAL APPEARANCE: cooperative and in distress (ill appearing, complaining of severe abdominal pain, actively vomiting) ORIENTATION/CONSCIOUSNESS: Yes awake, Yes oriented to person, Yes oriented to place and Yes oriented to time HENMT: COMMON NORMALS: normocephalic and atraumatic HEAD & SCALP: normal to inspection, normocephalic and atraumatic Resp: COMMON NORMALS: normal respiratory effort and clear to auscultation bilaterally AUSCULTATION: clear to auscultation bilaterally Cardio: COMMON NORMALS: regular rate and regular rhythm RATE: regular rate RHYTHM: regular rhythm GI: OTHER: abdominal exam not performed as patient is hunched over vomiting-she is unwilling to lie down for evaluation; will give pain/nausea meds and re-assess : COMMON NORMALS: Yes no CVA tenderness BLADDER/KIDNEY EXAM: Yes no CVA tenderness Back/Pelvis: COMMON NORMALS: no CVA tenderness, thoracic and lumbar spine normal to inspection, no thoracic nor lumbar tenderness and thoraco-lumbar ROM normal Extremity: COMMON NORMALS: normal to inspection GENERAL: Yes normal exam except as noted Neuro: STEPHANIE COMA SCALE: document GCS findings [place] coma scale eye opening: Spontaneous [place] coma scale verbal response: Orientated Stephanie coma scale motor response: Obey commands [place] coma scale total score: 15 COMMON NORMALS: patient oriented x3, moves all extremities, no focal motor deficits and no sensory deficits noted SENSORIUM/ORIENTATION: Yes alert, Yes oriented to person, Yes oriented to place and Yes oriented to time Skin: COMMON NORMALS: no rashes or lesions noted GENERAL SKIN EXAM: no rashes or lesions noted Course Vital Signs: Vital signs: Vital Signs Temperature 98.2 F 09/13/21 09:37 Pulse Rate 84 09/13/21 15:05 Respiratory Rate 14 09/13/21 15:05 Blood Pressure 105/65 09/13/21 15:05 Pulse Oximetry 100 09/13/21 15:05 MDM - Abdominal Pain Medical Decision Making Patient is a 30-year-old female who arrived today in significant discomfort in regards to abdominal pains, nausea, and vomiting. Patient was seen at our facility early this morning for same symptoms. She trialed outpatient treatment but failed. On her last visit she had moderately elevated LFTs. These have do ubled in the last [address] scan showing no obstruction. She has no ductal dilation. She had a normal ultrasound on last visit. Hepatitis panel ran on last visit and these are negative apart from her hepatitis A which is a send out and currently pending. At this point I think patient would benefit from hospitalization for symptomatic treatment/hydration. I have spoken to Dr. Sam who will also evaluate patient speak to hospitalist for admission. Lab Data : 09/13/21 09:54 09/13/21 09:54 Labs/Radiology: Radiology Impressions Abdomen/Pelvis CT 09/13/21 09:48 IMPRESSION: 1. Improved fluid distention of small bowel loops. 2. Severe distention of the cecum with fluid and fecal content. Cecum is deep within the pelvis and contacts the urinary bladder. At this time no ischemic changes or abscess or obstruction is identified. 3. Tiny amount of free fluid in the pelvis. 4. Prior cholecystectomy. 5. Periportal edema new since 12/28/2017. This can be seen with aggressive IV hydration or acute hepatitis. Laboratory Results WBC 7.9 10^3/uL (4.0-10.0) 09/13/21 09:54 RBC 4.89 10^6/uL (4.1-5.3) 09/13/21 09:54 Hgb 15.9 g/dL (11.5-15.3) H 09/13/21 09:54 Hct 46.1 % (37.0-47.0) 09/13/21 09:54 MCV 94.3 fl (81-99) 09/13/21 09:54 MCH 32.5 pg (28.0-34.0) 09/13/21 09:54 MCHC 34.5 g/dL (30.0-36.0) 09/13/21 09:54 RDW 11.9 % (12.1-15.1) L 09/13/21 09:54 Plt Count 178 10^3/cmm (130-400) 09/13/21 09:54 MPV 11.0 fL (7.4-10.4) H 09/13/21 09:54 Neut % (Auto) 92.5 % 09/13/21 09:54 Lymph % (Auto) 3.2 % 09/13/21 09:54 [place] % (Auto) 4.1 % 09/13/21 09:54 Eos % (Auto) 0.0 % 09/13/21 09:54 Baso % (Auto) 0.1 % 09/13/21 09:54 Neut # (Auto) 7.29 10^3/uL (1.8-7.7) 09/13/21 09:54 Lymph # (Auto) 0.3 10^3/uL (0.8-4.8) L 09/13/21 09:54 [place] # (Auto) 0.3 10^3/uL (0.2-0.9) 09/13/21 09:54 Eos # (Auto) 0.0 10^3/uL (0.0-0.8) 09/13/21 09:54 Baso # (Auto) 0.0 10^3/uL (0.0-0.1) 09/13/21 09:54 Nucleated RBC % (auto) 0 % 09/13/21 09:54 Nucleated RBCs # 0.0 /100WBC 09/13/21 09:54 PT 15.70 SECONDS (12.1-14.9) H 09/13/21 12:26 INR 1.21 (0.8-1.2) H 09/13/21 12:26 APTT 24.6 SECONDS (23.9-36.7) 09/13/21 12:26 Sodium 140 mmol/L (136-145) 09/13/21 09:54 Potassium 3.9 mmol/L (3.5-5.1) 09/13/21 09:54 Chloride 104 mmol/L (98-107) 09/13/21 09:54 Carbon Dioxide 20 mmol/L (22-29) L 09/13/21 09:54 Anion Gap 19.9 (5-19) H 09/13/21 09:54 BUN 15 mg/dL (6-20) 09/13/21 09:54 Creatinine 0.7 mg/dL (0.5-0.9) 09/13/21 09:54 GFR Calculation 98.9 mL/min (90-130) 09/13/21 09:54 Glucose 132 mg/dL (65-115) H 09/13/21 09:54 Calculated Osmolality 293 mOsm/kg (285-295) 09/13/21 09:54 Lactic Acid 2.0 mmol/L (0.5-2.2) 09/13/21 09:54 Calcium 10.2 mg/dL (8.5-10.5) 09/13/21 09:54 Total Bilirubin 1.9 mg/dL (0.15-1.2) H 09/13/21 09:54 AST 515 U/L (0-32) H 09/13/21 09:54 ALT 474 U/L (0-33) H 09/13/21 09:54 Alkaline Phosphatase 171 IU/L (35-105) H 09/13/21 09:54 Total Protein 7.4 g/dL (6.6-8.7) 09/13/21 09:54 Albumin 5.1 g/dL (3.5-5.2) 09/13/21 09:54 Globulin 2.3 g/dL (1.3-4.6) 09/13/21 09:54 Lipase 86 U/L (13-60) H 09/13/21 09:54 HCG, Qual Negative (Negative) 09/13/21 09:54 Urine Color Yellow (Yellow) 09/13/21 11:20 Urine Appearance Sl hazy (CLEAR) 09/13/21 11:20 Urine pH 7 (5-7) 09/13/21 11:20 Ur Specific [place] 1.010 (1.005-1.030) 09/13/21 11:20 Urine Protein Neg (Negative) 09/13/21 11:20 Urine Glucose (UA) Norm (Normal) 09/13/21 11:20 Urine Ketones 2+ (Negative) H 09/13/21 11:20 Urine Blood Neg (Negative) 09/13/21 11:20 Urine Nitrate Negative (Negative) 09/13/21 11:20 Urine Bilirubin 1+ (Negative) H 09/13/21 11:20 Urine Urobilinogen 8 mg/dL (Negative) H 09/13/21 11:20 Ur Leukocyte Esterase Negative (Negative) 09/13/21 11:20 Discharge Plan Discharge Patient Disposition: Admitted As Inpatient Admit Provider: Rema Romano Clinical Impression: Hepatitis Condition: Stable Coding Level of Care Code ED Security Solutions Engineer for Chg Fwd Exam Comprehensive Documented by User: Checo Sam DO 09/13/21 16:00 HPI - Abdominal Pain General: Chief Complaint: Abdominal Pain Stated Complaint: severe abdominal pain/nausea Time Seen by Provider: 09/13/21 09:29 [facility] ED PFSH: 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 Surgical History History of cholecystectomy History of lumpectomy of both breasts Family History Mother Hypertension Thyroid disease Father Diabetes Thyroid disease Social History Smoking and tobacco status: never smoked Second hand smoke exposure: No Alcohol intake: current Alcohol intake frequency: holidays/special occasions only Physical Exam Neuro: STEPHANIE COMA SCALE: document GCS findings [place] coma scale total score: 15 Course Vital Signs: Vital signs: Vital Signs Temperature 98.2 F 09/13/21 09:37 Pulse Rate 84 09/13/21 15:05 Respiratory Rate 14 09/13/21 15:05 Blood Pressure 105/65 09/13/21 15:05 Pulse Oximetry 100 09/13/21 15:05 MDM - Abdominal Pain Medical Decision Making Patient is a 30-year-old female who arrived today in significant discomfort in regards to abdominal pains, nausea, and vomiting. Patient was seen at our facility early this morning for same symptoms. She trialed outpatient treatment but failed. On her last visit she had moderately elevated LFTs. These have doubled in the last [address] scan showing no obstruction. She has no ductal dilation. She had a normal ultrasound on last visit. Hepatitis panel ran on last visit and these are negative apart from her hepatitis A which is a send out and currently pending. At this point I think patient would benefit from hospitalization for symptomatic treatment/hydration. I have spoken to Dr. Sam who will also evaluate patient speak to hospitalist for admission. Chart reviewed patient seen and examined concur with above history and exam documented by Winifred Wheat. She appears to have an acute viral hepatitis nonspecific. Vital hepatitis A is pending as are COVID tests we will get a CDS as well discussed with Dr. Paz she will admit. Patient also has Javier's and celiac disease. Medical Records I reviewed the patient's medical records. Lab Data I reviewed the patient's lab results. : 09/13/21 09:54 09/13/21 09:54 Labs/Radiology: Radiology Impressions Abdomen/Pelvis CT 09/13/21 09:48
--- NOTE | 2021-09-13 09:48 | CT_ITS ---
WS: [id number] CT ABDOMEN AND PELVIS NONCONTRAST HISTORY: severe abdominal pain, vomiting TECHNIQUE: Imaging performed through the abdomen and pelvis. Coronal and sagittal reformats are submi tted. All CT scans at [facility] use at least one of these dose optimization techniques: auto mated exposure control; mA and/or kV adjustment per patient size (includes targeted exams where dose is matched to clinical indication); or iterative reconstruction. DLP: 875.81 mGy.cm COMPARISON: 09/13/2021 Lower thorax: Lung bases are clear. Visualized heart is normal. No hiatal hernia. Liver: Normal size liver. No mass or bile duct dilatation. There is mild periportal edema surrounding the portal veins. This is new since 2018. Gallbladder: Prior cholecystectomy. Pancreas: Normal size and attenuation. Normal pancreatic duct. No pancreatitis or mass. Spleen: Normal. Adrenal glands: Normal. No mass. Right kidney: Normal size kidney with no mass or hydronephrosis. Left kidney: Normal size. Mildly prominent extrarenal pelvis but no obstruction evident. Aorta: Normal abdominal aorta, no aneurysm or atherosclerosis. Tiny amount of free fluid in the pelvis. Small lymph nodes would be difficult to identified as there is very little fat present. GI tract: Stomach is normally distended. No significant distention of the small bowel. Previously edu cribed fluid signal small bowel loops has moderately improved. There is still with a few small bowel loops in the LEFT abdomen which are fluid-filled. There is marked distention of the colon with fecal material. The cecum is very low-lying and extends into the pelvis and displaces the urinary bladder. Marked distention of the cecum. At this time no perforation or ischemic changes are identified. The a ppendix is identified and normal. Abdominal wall: Negative. No hernia. Pelvis: Minimally distended urinary bladder. The dilated enlarged distended cecum contacts and slight ly deforms the urinary bladder. Osseous structures: Unremarkable. CT/CT abdomen pelvis wo con [id number] IMPRESSION: 1. Improved fluid distention of small bowel loops. 2. Severe distention of the cecum with fluid and fecal content. Cecum is deep within the pelvis and contacts the urinary bladder. At this time no ischemic ch anges or abscess or obstruction is identified. 3. Tiny amount of free fluid in the pelvis. 4. Prior cholecystectomy. 5. Periportal edema new since 12/28/2017. This can be seen with aggressive IV h ydration or acute hepatitis.
[2021-09-13 10:02] LABS: Basophils % 0.1 %; Hematocrit 46.1 % (37.0-47.0); Hemoglobin 15.9 g/dL (11.5-15.3); Lymphocytes # 0.3 10^3/uL (0.8-4.8); Lymphocytes % 3.2 %; Mean Corpuscular HGB Conc 34.5 g/dL (30.0-36.0); Mean Corpuscular Hemoglobin 32.5 pg (28.0-34.0); Mean Corpuscular Volume 94.3 fl (81-99); Monocytes # 0.3 10^3/uL (0.2-0.9); Monocytes % 4.1 %; Neutrophils # 7.29 10^3/uL (1.8-7.7); Neutrophils % 92.5 %; Nucleated Red Blood Cells % 0 %; Platelet Count 178 10^3/cmm (130-400); Red Blood Count 4.89 10^6/uL (4.1-5.3); Red Cell Distribution Width 11.9 % (12.1-15.1); White Blood Count 7.9 10^3/uL (4.0-10.0)
[2021-09-13] MEDS: sodium chloride 0.9% 1,000 ML 999 ML IV (10:02)
[2021-09-13] MEDS: metoclopramide 5 mg/mL SDV 2 mL 10 MG IVP (10:03)
[2021-09-13] MEDS: ketorolac 30 mg/mL INJ IVP (10:05)
[2021-09-13 10:14] VITALS: BP 136/57; PULSE 64; RESP 20; O2SAT 100
[2021-09-13] MEDS: ondansetron 2 mg/ML SDV 2 mL IVP (10:25)
[2021-09-13 10:46] LABS: Alanine Aminotransferase 474 U/L (0-33); Albumin Level 5.1 g/dL (3.5-5.2); Alkaline Phosphatase 171 IU/L (35-105); Aspartate Amino Transferase 515 U/L (0-32); Blood Urea Nitrogen 15 mg/dL (6-20); Calcium 10.2 mg/dL (8.5-10.5); Carbon Dioxide 20 mmol/L (22-29); Chloride 104 mmol/L (98-107); Globulin 2.3 g/dL (1.3-4.6); Glomerular Filtration Rate 98.9 mL/min (90-130); Glucose 132 mg/dL (65-115); HCG, Serum Qual Negative (Negative); Lipase 86 U/L (13-60); Osmolality Calculated 293 mOsm/kg (285-295); Sodium 140 mmol/L (136-145); Total Bilirubin 1.9 mg/dL (0.15-1.2); Total Protein 7.4 g/dL (6.6-8.7)
[2021-09-13 10:47] LABS: Anion Gap 19.9 (5-19); Potassium 3.9 mmol/L (3.5-5.1)
[2021-09-13] MEDS: promethazine 25 mg/mL SDV 1 mL IM (11:43)
[2021-09-13 11:56] LABS: Charge for UA Resulting for Rev
[2021-09-13 12:24] LABS: Urine Color Yellow (Yellow)
[2021-09-13 12:25] LABS: Bilirubin Urine 1+ (Negative); Blood Urine Neg (Negative); Glucose Urine UA Norm (Normal); Ketones Urine 2+ (Negative); Nitrate Urine Negative (Negative); Protein Urine Neg (Negative); Urine Appearance SL Hazy (CLEAR); pH Urine 7 (5-7)
[2021-09-13 12:26] LABS: Add Urine Microscopic? YES; Leukocyte Esterase Urine Negative (Negative); Urobilinogen Urine 8 mg/dL (Negative)
[2021-09-13 13:00] LABS: INR 1.21 (0.8-1.2); Partial Thromboplastin Time 24.6 SECONDS (23.9-36.7)
[2021-09-13 15:05] VITALS: BP 105/65; PULSE 84; RESP 14; O2SAT 100
[2021-09-13] MEDS: ondansetron 2 mg/ML SDV 2 mL 4 MG IVP ×2 (16:14→21:55)
--- NOTE | 2021-09-13 16:37 | PM.HP ---
Providers/Chief Complaint Admitting Physician: Rema Romano MD Primary Care Provider: MD Jinny Espino MD Chief Complaint: severe abdominal pain/nausea/vomiting History of Present Illness Ashley Damian is a 30 year old female who presented to the emergency room for the second time in less than 24 hours with severe abdominal pain. Her symptoms began a few days ago with nausea and then vomiting. She also had some loose stools with reported diarrhea for 1 day. Yesterday she had multiple episodes of vomiting and her ended up finding her curled up with severe abdominal pain rated at a 10 out of 10. Presently pain is down to a 7 out of 10 and her nausea has started to return. Pain is located in the right upper quadrant/epigastric area. No radiation. Pain is increasing in severity over the last couple of days. Patient generally has a high pain tolerance so this was alarming to her and her . She has had some temperatureslow-grade around 100. She does have a child at home who has had some GI symptoms but her has not been ill. Denies any blood in her vomitus. Does not describe any melena or notable blood in her stools. She had a soft stool this morning. Has not had further diarrhea. Has a history of silent reflux that did not reallyshe denies history of heavy or recent alcohol use. No report of any drug use. Has not been mushroom hunting. Never had symptoms quite like this in the past. She has had cholecystectomy ovarian cyst removed previously. Has had 1 vaginal . Work-up this morning demonstrated dilated small bowel loops and some mild elevation in LFTs and lipase. Clinically felt to be a gastroenteritis. Patient improved with supportive care and was discharged home only to have the severe pain return again along with the persistent vomiting. Repeat CT imaging shows improvement in small bowel dilatation but now she has significant cecal distention. LFTs have more than doubled since this morning, in particular transaminases. Lipase is a bit better though still above normal range. Patient had abdominal ultrasound this morning that did not show any ductal dilatation or other acute abnormality. Chest x-ray earlier today also did not show any infiltrative process. Urinalysis was abnormal but also consistent with contaminated specimen. Mrs. Damian is on her menstrual cycle presently. test was negative. She has been going to see Dr. Jinny Herzog for infertility treatments but stopped taking fertility medications a couple of months ago. 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 She is known to have celiac disease and follows a gluten-free and anti-inflammatory diet. Has not had colonoscopy nor EGD. With the changes noted on CT imaging and in particular the increase in liver enzymes in the setting of recurrent severe pain and vomiting, patient is being placed into observation status. Review of Systems Const: Reports: fever(s) (low grade around 100 at times), change in weight (weight fluctuates quite a bit) and malaise ENMT: Reports: other (cobblestone throat) Card: Denies: chest pain (but reports chest pressure today) Resp: Denies: dyspnea (but breathing harder with increased episodes of abdominal pain) GI: Reports: abdominal pain, nausea, vomiting, constipation and GI cramping; Denies: hematemesis, coffee ground emesis or diarrhea : Reports: difficulty conceiving (stopped fertility medications few months ago) and other (currently on menstrual cycle); Denies: dysuria Musc: Reports: other (no acute joint pain/swelling, ) Skin/Breast: Reports: acne (shoulders/upper back) Neuro: Denies: headache(s) or dizziness Endo: Reports: other (had goiter as recent as few months ago) Mane/Lymph: Denies: easy bruising Medications/Allergies Home Medications Medication Instructions Recorded Confirmed Last Taken Type Low Dose Naltrexone 2 mg PO DAILY 09/13/21 09/13/21 09/12/21 History ascorbic acid (vitamin C) 500 mg 500 mg PO DAILY 09/13/21 Unknown History chewable tablet (Vitamin C) ibuprofen 800 mg tablet 800 mg PO TID PRN 09/13/21 09/13/21 Unknown History levothyroxine 150 mcg tablet 150 mcg PO QAM 09/13/21 09/13/21 09/12/21 History ondansetron 4 mg disintegrating 4 mg PO Q8H PRN #15 tab 09/13/21 09/13/21 09/13/21 08:30 Rx tablet vit no.95-ferrous 1 tab PO DAILY 09/13/21 09/13/21 Unknown History fumarate 28 mg-folic acid 800 mcg tablet ( Multivitamins) vitamin B complex 1 tab PO DAILY 09/13/21 Unknown History zinc 50 mg tablet 50 mg PO DAILY 09/13/21 Unknown History Allergies Allergy/AdvReac Type Severity Reaction Status Date / Time chlorhexidine Allergy ALGY-Rash Verified 09/13/21 09:40 dextromethorphan Allergy ALGY-Difficulty Verified 09/13/21 09:40 Breathing guaifenesin [From Mucinex] Allergy ALGY-Difficulty Verified 09/13/21 09:40 Breathing hydrocodone Allergy ADR-Nausea Verified 09/13/21 09:40 Iodinated Contrast Media Allergy ALGY-Anaphy Verified 09/13/21 09:40 laxis oxycodone Allergy ADR-Nausea Verified 09/13/21 09:40 penicillin G Allergy Unknown Verified 09/13/21 09:40 Penicillins Allergy ALGY-Anaphy Verified 09/13/21 09:40 laxis psyllium [From Metamucil] Allergy Unknown Verified 09/13/21 10:12 Sulfa (Sulfonamide Allergy ALGY-Anaphy Verified 09/13/21 09:40 Antibiotics) laxis PFSH Acute PFSH: Medical History (Updated 09/13/21 @ 16:52 by Rema Romano MD) Celiac disease 1 para 1 Javier's disease thyroiditis Surgical History (Updated 09/13/21 @ 16:23 by Rema Romano MD) History of cholecystectomy History of lumpectomy of both breasts History of removal of ovarian cyst Family History (Updated 09/13/21 @ 16:48 by Rema Romano MD) Father Diabetes type I Family/Other Lupus Social History (Updated 09/13/21 @ 16:46 by Rema Romano MD) Smoking and tobacco status: never smoked Second hand smoke exposure: No Alcohol intake: current Alcohol intake frequency: holidays/special occasions only Substance/Drug Use: never Household members: spouse and children Marital status: Vitals/I&O/Wt Last Vital Signs Temp 98.2 F 09/13/21 09:37 Pulse 84 09/13/21 15:05 Resp 14 09/13/21 15:05 BP 105/65 09/13/21 15:05 Pulse Ox 100 09/13/21 15:05 09/13/21 09/13/21 09/13/21 06:59 14:59 22:59 Intake Total 1000 / 1000 Balance 1000 / 1000 Weight last 48 hrs Weight 61.235 kg Physical Exam Narrative: Constitutional: Awake and alert, looks uncomfortable and like she does not feel well, oriented and cooperative HEENT: Normocephalic, atraumatic, extraocular movements are intact, pupils are equal reactive, oropharynx with dry mucous membranes but otherwise clear Neck: Supple, no appreciable goiter Respiratory: Clear to auscultation bilaterally without any rales rhonchi or wheezes Cardiovascular: Bradycardic but regular rhythm, no murmurs gallops or rubs Abdomen: Soft, nondistended, right upper quadrant and epigastric tenderness without guarding but with some rebound noted, positive bowel sounds Extremities: No pitting edema or calf tenderness noted Skin: Patient with acne-like lesions on shoulders Neuro: Speech clear, face symmetric, moves all extremities Psych: Normal affect Data : 09/13/21 09:54 09/13/21 09:54 Other Labs: Radiology Impressions Abdomen/Pelvis CT 09/13/21 09:48 IMPRESSION: 1. Improved fluid distention of small bowel loops. 2. Severe distention of the cecum with fluid and fecal content. Cecum is deep within the pelvis and contacts the urinary bladder. At this time no ischemic changes or abscess or obstruction is identified. 3. Tiny amount of free fluid in the pelvis. 4. Prior cholecystectomy. 5. Periportal edema new since 12/28/2017. This can be seen with aggressive IV hydration or acute hepatitis. Laboratory Results WBC 7.9 10^3/uL (4.0-10.0) 09/13/21 09:54 RBC 4.89 10^6/uL (4.1-5.3) 09/13/21 09:54 Hgb 15.9 g/dL (11.5-15.3) H 09/13/21 09:54 Hct 46.1 % (37.0-47.0) 09/13/21 09:54 MCV 94.3 fl (81-99) 09/13/21 09:54 MCH 32.5 pg (28.0-34.0) 09/13/21 09:54 MCHC 34.5 g/dL (30.0-36.0) 09/13/21 09:54 RDW 11.9 % (12.1-15.1) L 09/13/21 09:54 Plt Count 178 10^3/cmm (130-400) 09/13/21 09:54 MPV 11.0 fL (7.4-10.4) H 09/13/21 09:54 Neut % (Auto) 92.5 % 09/13/21 09:54 Lymph % (Auto) 3.2 % 09/13/21 09:54 Josephine % (Auto) 4.1 % 09/13/21 09:54 Eos % (Auto) 0.0 % 09/13/21 09:54 Baso % (Auto) 0.1 % 09/13/21 09:54 Neut # (Auto) 7.29 10^3/uL (1.8-7.7) 09/13/21 09:54 Lymph # (Auto) 0.3 10^3/uL (0.8-4.8) L 09/13/21 09:54 Josephine # (Auto) 0.3 10^3/uL (0.2-0.9) 09/13/21 09:54 Eos # (Auto) 0.0 10^3/uL (0.0-0.8) 09/13/21 09:54 Baso # (Auto) 0.0 10^3/uL (0.0-0.1) 09/13/21 09:54 Nucleated RBC % (auto) 0 % 09/13/21 09:54 Nucleated RBCs # 0.0 /100WBC 09/13/21 09:54 PT 15.70 SECONDS (12.1-14.9) H 09/13/21 12:26 INR 1.21 (0.8-1.2) H 09/13/21 12:26 APTT 24.6 SECONDS (23.9-36.7) 09/13/21 12:26 Sodium 140 mmol/L (136-145) 09/13/21 09:54 Potassium 3.9 mmol/L (3.5-5.1) 09/13/21 09:54 Chloride 104 mmol/L (98-107) 09/13/21 09:54 Carbon Dioxide 20 mmol/L (22-29) L 09/13/21 09:54 Anion Gap 19.9 (5-19) H 09/13/21 09:54 BUN 15 mg/dL (6-20) 09/13/21 09:54 Creatinine 0.7 mg/dL (0.5-0.9) 09/13/21 09:54 GFR Calculation 98.9 mL/min (90-130) 09/13/21 09:54 Glucose 132 mg/dL (65-115) H 09/13/21 09:54 Calculated Osmolality 293 mOsm/kg (285-295) 09/13/21 09:54 Lactic Acid 2.0 mmol/L (0.5-2.2) 09/13/21 09:54 Calcium 10.2 mg/dL (8.5-10.5) 09/13/21 09:54 Total Bilirubin 1.9 mg/dL (0.15-1.2) H 09/13/21 09:54 AST 515 U/L (0-32) H 09/13/21 09:54 ALT 474 U/L (0-33) H 09/13/21 09:54 Alkaline Phosphatase 171 IU/L (35-105) H 09/13/21 09:54 Total Protein 7.4 g/dL (6.6-8.7) 09/13/21 09:54 Albumin 5.1 g/dL (3.5-5.2) 09/13/21 09:54 Globulin 2.3 g/dL (1.3-4.6) 09/13/21 09:54 Lipase 86 U/L (13-60) H 09/13/21 09:54 HCG, Qual Negative (Negative) 09/13/21 09:54 Urine Color Yellow (Yellow) 09/13/21 11:20 Urine Appearance Sl hazy (CLEAR) 09/13/21 11:20 Urine pH 7 (5-7) 09/13/21 11:20 Ur Specific [place] 1.010 (1.005-1.030) 09/13/21 11:20 Urine Protein Neg (Negative) 09/13/21 11:20 Urine Glucose (UA) Norm (Normal) 09/13/21 11:20 Urine Ketones 2+ (Negative) H 09/13/21 11:20 Urine Blood Neg (Negative) 09/13/21 11:20 Urine Nitrate Negative (Negative) 09/13/21 11:20 Urine Bilirubin 1+ (Negative) H 09/13/21 11:20 Urine Urobilinogen 8 mg/dL (Negative) H 09/13/21 11:20 Ur Leukocyte Esterase Negative (Negative) 09/13/21 11:20 Other data: LABS FROM [facility] DONE BY Dr Jinny Herzog within last few months (viewed on patient cell phone by me) High Sensitivity CRP >10 TSH 0.8 A1C normal Laboratory Tests from ED visit early AM 09/13/21 09/13/21 09/13/21 00:25 00:52 00:52 WBC 12.6 H Hgb 15.5 H Plt Count 176 Neut % (Auto) 89.2 Sodium 140 Potassium 4.0 Chloride 106 Carbon Dioxide 23 Anion Gap 15.0 BUN 19 Creatinine 0.8 Total Bilirubin 1.1 AST 219 H ALT 143 H Alkaline Phosphatase 111 H Total Protein 6.3 L Albumin 4.5 Lipase 115 H TSH 2.42 09/13/21 09/13/21 09/13/21 00:52 03:10 03:10 Hepatitis A IgM Ab Pending/Sent Out Hep Bs Antigen Non-reactive Hep B Core IgM Ab Non-reactive Hepatitis C Antibody Non-reactive Influenza Type A Ag Negative Influenza Type B Ag Negative SARS-CoV-2 Ag (Rapid) Negative CT Abd/Pelvis from early AM IMPRESSION: 1. Several small bowel loops are are fluid-filled and borderline/mildly prominent in size, see above discussion. This appearance could be secondary to some form of gastroenteritis. If there is concern for small bowel obstruction, follow-up may be useful. Stomach and bowel: Several small bowel loops are are fluid-filled and borderline/mildly prominent in size. The overall appearance is not strongly suggestive of significant small bowel obstruction at this time. An early/partial small bowel obstruction is difficult to entirely exclude. This appearance could be secondary to some form of gastroenteritis. Please correlate clinically. ? If there is clinical suspicion for small bowel obstruction, follow-up may helpful to exclude progression. There are no CT findings to strongly suggest diverticulitis. 2. No free intraperitoneal air. 3. Prior cholecystectomy, no significant biliary tree dilation. 4. Normal appendix. 5. No hydronephrosis of either kidney. No visible renal or ureteral calculus. 6. Other findings discussed above. ABD US from early AM FINDINGS: Liver: Essentially unremarkable sonographic appearance of the liver. Gallbladder: Prior cholecystectomy. Common bile duct: No significant biliary dilation, common duct measures 7.2 mm. Pancreas: Visible pancreas unremarkable. Right kidney: Images of the right kidney show no hydronephrosis. IMPRESSION: 1. Prior cholecystectomy, no significant biliary tree dilation. 2. Other details/findings discussed above. CXR from Early AM FINDINGS: Lungs: No CHF/pulmonary edema. ?Visible lungs appear essentially clear. Pleural spaces: No visible pneumothorax. ?No definite pleural fluid. Heart/Mediastinum: Heart size is within normal limits. Bones/joints: No significant acute finding. IMPRESSION: 1. Essentially unremarkable single view chest. 2. Other findings discussed above. A&P Assessment and plan (1) Acute hepatitis: As evidenced by increasing liver enzymes from ER visit earlier today to this afternoon, borderline INR, abdominal pain in the region of the liver and periportal edema. ED physicians report a local increase in viral gastroenteritis presentations within the past week, some of which have been associated with some liver enzyme elevation. Patient has a child who has had GI symptoms recently. Initial presenting symptom was vomiting followed later by pain. Hepatitis B and C testing was negative though hepatitis A is still pending. Patient's has not been ill. She denies alcohol use. Not currently . Denies recent wild mushroom hunting or consumption. Does not report regular use of Tylenol or other [id number] medications classically associated with acute hepatitis although naltrexone can be associated with hepatotoxicity. No report of known tick bites though has seen a few. With normal platelet count tick illness seems less likely diagnosis presently. Given her history of Javier's and celiac disease, autoimmune hepatitis is high on my differential behind a viral process. Concerning features include increasing liver enzymes, bowel distention and rebound tenderness, in addition to symptoms. Status: Acute (2) Enteritis: Improved small bowel distention this afternoon compared to early am imaging, though now with severe cecal distention. No abscess, ischemic changes or obstruction noted per radiology, though early process should be considered, in addition to viral or inflammatory. 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 and autoimmune disease Status: Chronic Plan Borderline blood sugar with recent normal A1c Sinus bradycardia alternating with sinus tachycardia in the emergency room Observation admission for now IV fluids Pain control with Toradol presently Antiemetics Check lactic acid, Tylenol level, CRP, procalcitonin, JOEL, AMA and anti-smooth muscle antibody Has had CT scan of abdomen and abdominal ultrasound today KUB in the morning along with repeat abdominal examination Repeat liver enzymes, lipase and INR in the morning Follow-up pending hepatitis A Follow-up pending tick panel Follow-up stool studies that have been ordered should patient have recurrent diarrhea Twelve-lead EKG, monitor for symptomatic arrhythmias Continue home levothyroxine Hold naltrexone and recommend holding at discharge until acute hepatitis resolves Depending on results of repeat liver enzymes, consider empiric high-dose steroid treatment Clear liquids for now, strict gluten-free diet PPI for GI prophylaxis Currently low risk for VTE Findings, concerns and plans were discussed with patient as well as her and both were given an opportunity to ask questions Currently anticipate discharge home with outpatient follow-up to Dr. Jinny Hrezog and Dr. Sosa, either with supportive care or possibly on high-dose steroids Supportive care otherwise Full code Attestations Medical Necessity Statement*: Anticipated stay less than 2 midnights in a patient presenting twice to the emergency room in 1 day with severe abdominal pain. She does have some rebound tenderness on examination and has doubling of her liver enzymes today. She very well may have a viral gastroenteritis but autoimmune hepatitis is also high on the differential. She is presently requiring repeated antiemetics, pain control and IV fluids necessitating at least short-term acute care. This will also allow close monitoring of clinical exam and laboratory studies that might suggest rapidly worsening condition in this 30-year-old mother of 1 who does not seek acute medical care very often. Coding Level of Care Code Acute Head Of Data for Chg Fwd Diagnoses Acute hepatitis B17.9 Enteritis K52.9 Elevated lipase R74.8 Dehydration E86.0 Javier's disease E06.3 Celiac disease K90.0 Elevated high sensitivity C-reactive protein R79.82
[2021-09-13 16:42] VITALS: BP 125/65; PULSE 49; RESP 14; O2SAT 98
--- NOTE | 2021-09-13 17:03 | ECG_ITS ---
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 Measurements Intervals [place] Rate: 53 P: MD: QRS: 74 QRSD: 81 T: 56 QT: 446 QTc: 421 Interpretive Statements Sinus bradycardia with frequent PACs/junctional escape beats ABNORMAL RHYTHM ECG Compared to ECG 09/13/2021 00:31:36 Sinus tachycardia no longer present T-wave abnormality no longer present Electronically Signed On 09-13-2021 23:37:13 CDT by Savage Jha M.D. [id number]
[2021-09-13 17:13] VITALS: BMI 21.1
[2021-09-13 18:35] LABS: Acetaminophen < 5.0 ug/mL (10-30)
[2021-09-13] MEDS: pantoprazole 40 mg SDV IVP (18:41)
[2021-09-13] MEDS: sodium chlor 0.9% + KCl 20 mEq 20 MEQ/1,000 ML BAG 125 MEQ IV (18:41)
--- NOTE | 2021-09-13 18:52 | PC.NURSE ---
PATIENT IS BRADYCARDIC IN THE HIGH 40'S LOW 50'S. DR. ABDALLA NOTIFIED.
[2021-09-13 20:00] VITALS: BP 126/74; PULSE 58; RESP 18; TEMP 36.7; O2SAT 96
--- NOTE | 2021-09-13 20:26 | PC.NURSE ---
i reported low pulse 58 to nurse
[2021-09-13 22:22] LABS: Immunoglobulin IGG 864 mg/dL (700-1600)
[2021-09-14] VITALS: BP 94/54; PULSE 89; RESP 16; TEMP 36.8; O2SAT 97
[2021-09-14 03:25] LABS: Basophils % 0.2 %; Eosinophils % 0.6 %; Hematocrit 39.3 % (37.0-47.0); Lymphocytes # 0.8 10^3/uL (0.8-4.8); Lymphocytes % 16.5 %; Mean Corpuscular HGB Conc 33.1 g/dL (30.0-36.0); Mean Corpuscular Hemoglobin 32.1 pg (28.0-34.0); Mean Platelet Volume 11.4 fL (7.4-10.4); Monocytes # 0.6 10^3/uL (0.2-0.9); Monocytes % 13.2 %; Neutrophils # 3.36 10^3/uL (1.8-7.7); Neutrophils % 69.3 %; Nucleated Red Blood Cells % 0 %; Platelet Count 141 10^3/cmm (130-400); Red Blood Count 4.05 10^6/uL (4.1-5.3); Red Cell Distribution Width 12.2 % (12.1-15.1); White Blood Count 4.9 10^3/uL (4.0-10.0)
[2021-09-14] MEDS: sodium chlor 0.9% + KCl 20 mEq 20 MEQ/1,000 ML BAG 125 MEQ IV (03:39)
[2021-09-14 03:44] LABS: INR 1.33 (0.8-1.2)
[2021-09-14 03:45] LABS: Lactate (Lactic Acid level) 1.5 mmol/L (0.5-2.2); Magnesium 2.1 mg/dL (1.7-2.3); Phosphorus 2.3 mg/dL (2.5-4.5)
[2021-09-14 03:46] LABS: Alanine Aminotransferase 272 U/L (0-33); Albumin Level 3.5 g/dL (3.5-5.2); Alkaline Phosphatase 117 IU/L (35-105); Ammonia 34 umol/L (11-51); Anion Gap 11.6 (5-19); Aspartate Amino Transferase 106 U/L (0-32); Blood Urea Nitrogen 12 mg/dL (6-20); Carbon Dioxide 24 mmol/L (22-29); Chloride 109 mmol/L (98-107); Globulin 2.1 g/dL (1.3-4.6); Glomerular Filtration Rate 118.2 mL/min (90-130); Glucose 118 mg/dL (65-115); Osmolality Calculated 293 mOsm/kg (285-295); Potassium 3.6 mmol/L (3.5-5.1); Sodium 141 mmol/L (136-145); Total Bilirubin 0.4 mg/dL (0.15-1.2); Total Protein 5.6 g/dL (6.6-8.7)
[2021-09-14 03:47] LABS: C Reactive Protein 14.9 mg/L (0.0-4.9); Lipase 19 U/L (13-60)
[2021-09-14 04:00] VITALS: BP 102/58; PULSE 86; RESP 16; TEMP 36.7; O2SAT 95
[2021-09-14] MEDS: levothyroxine 150 mcg Tablet PO (05:25)
[2021-09-14 06:00] VITALS: PULSE 88
[2021-09-14 08:00] VITALS: BP 123/74; PULSE 95; RESP 14; O2SAT 96
--- NOTE | 2021-09-14 08:18 | XR_ITS ---
WS: [id number] Acute abdomen series, 4 views, 09/14/2021 Clinical Data: cecal distention Comparison: None. Findings: In the chest there are no nodules, masses or effusions. The heart is normal. The pulmonary vascularity is not increased. No free air is seen beneath the diaphragms. No abnormal intra-abdominal masses or calcifications are seen. There is minimal fecal material throughout the colon. The bladder is full. There are clips in t he right upper quadrant from a cholecystectomy. XR/XR acute abdomen series [id number] Impression: Negative acute abdomen series.
[2021-09-14 14:13] LABS: Lyme AB Screen <0.90 index
--- NOTE | 2021-09-14 14:15 | P.DS_ITS ---
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 Her symptoms began a few days ago with nausea and then vomiting.? She also had some loose stools with reported diarrhea for 1 day.? Yesterday she had multiple episodes of vomiting and her ended up finding her curled up with severe abdominal pain rated at a 10 out of 10.? Presently pain is down to a 7 out of 10 and her nausea has started to return.? Pain is located in the right upper quadrant/epigastric area.? No radiation.? Pain is increasing in severity over the last couple of days.? Patient generally has a high pain tolerance so this was alarming to her and her .? She has had some temperatureslow-grade around 100.? She does have a child at home who has had some GI symptoms but her has not been ill.? Denies any blood in her vomitus.? Does not describe any melena or notable blood in her stools.? She had a soft stool this morning.? Has not had further diarrhea.? Has a history of silent reflux that did not reallyshe denies history of heavy or recent alcohol use.? No report of any drug use.? Has not been mushroom hunting.? Never had symptoms quite like this in the past.? She has had cholecystectomy ovarian cyst removed previously.? Has had 1 vaginal .? Work-up this morning demonstrated dilated small bowel loops and some mild elevation in LFTs and lipase.? Clinically felt to be a gastroenteritis.? Patient improved with supportive care and was discharged home only to have the severe pain return again along with the persistent vomiting.? Repeat CT imaging shows improvement in small bowel dilatation but now she has significant cecal distention.? LFTs have more than doubled since this morning, in particular transaminases.? Lipase is a bit better though still above normal range.? Patient had abdominal ultrasound this morning that did not show any ductal dilatation or other acute abnormality.? Chest x-ray earlier today also did not show any infiltrative process.? Urinalysis was abnormal but also consistent with contaminated specimen.? Mrs. Damian is on her menstrual cycle presently.? test was negative.? She has been going to see Dr. Jinny Herzog for infertility treatments but stopped taking fertility medications a couple of months ago.? She does have a history of Javier's, as well as thyroiditis, reported goiter as recently as a few months ago, currently improved.? She is known to have celiac disease and follows a gluten- free and anti-inflammatory diet.? Has not had colonoscopy nor EGD.? With the changes noted on CT imaging and in particular the increase in liver enzymes in the setting of recurrent severe pain and vomiting, patient is being placed into observation status. Hospital Course Hospital Course During hospitalization she was kept on bowel rest with trial of clear liquid diet. Received IV hydration, symptomatic control of nausea, as well as PPI. She had a bowel movement last night, vomiting and nausea have resolved, and has tolerated clear liquids today without difficulty. She is feeling much better. The etiology of enteritis and hepatitis is still not entirely clear. Naltrexone was held as it may have an adverse effect of hepatitis, and she is now asked to stop this medication. Similarly she is asked to not resume the herbal supplements Adapten-All as it is unknown whether any of the multiple ingredients can cause adverse effect. Viral hepatitis panel was requested, and returned negative except for hepatitis A which is still pending as it had to be sent to outside laboratory. With history of Javier thyroiditis, additionally autoimmune studies were requested including for autoimmune hepatitis with AMA, anti-smooth muscle antibody, other autoimmune work-up includes JOEL panel. All the studies are pending. Tick panel and GC panel were requested as well to evaluate for other less likely causes of hepatic/perihepatic inflammation. Stool studies were positive for Hemoccult, negative for lactoferrin and with unremarkable enteric bacterial panel. Today liver parameters appear significantly improved. Hyperbilirubinemia, up to 1.9 yesterday, today is resolved with T bili of 0.4. AST and ALT are both decreased down to 106, 272 respectively. Alk phos is decreased down to 117. Follow-up abdominal series is unremarkable. Given significant improvement, and subjectively she is feeling much better, tolerating oral intake, she is comfortable discharging with follow-up on outpatient side with regards to her convalescence and pending laboratory work-up. She does note intermittent constipation which possibly in combination with enteritis may have been behind the cecal dilation. She reports when she had a bowel movement yesterday her stool was hard. She is advised to increase fiber intake in her diet. She is also noted to have mildly decreased phosphorus level for which she is given short course of supplementation. Minimally decreased calcium level may benefit from increase of calcium-containing foods. Physical Exam Narrative: and [id number] at bedside. Const: COMMON NORMALS: alert GENERAL APPEARANCE: cooperative ORIENTATION/CONSCIOUSNESS: Yes awake HENMT: COMMON NORMALS: normocephalic, EAC's normal, Normal external nose present and moist oral mucous membranes HEAD & SCALP: normocephalic NOSE: Normal external nose present EXTERNAL AUDITORY CANAL: EAC's normal Neck/C-Spine: COMMON NORMALS: no meningeal signs Chest: CHEST: Yes Symmetrical chest wall rise Resp: COMMON NORMALS: clear to auscultation bilaterally AUSCULTATION: clear to auscultation bilaterally Cardio: COMMON NORMALS: regular rate, regular rhythm and No murmurs present (Cardio) RATE: regular rate RHYTHM: regular rhythm GI: COMMON NORMALS: Normal to inspection, nondistended, normoactive bowel maria teresa nds present, Soft to palpation and non-tender PALPATION: Yes Soft to palpation Extremity: COMMON NORMALS: no pedal edema Neuro: COMMON NORMALS: moves all extremities SENSORIUM/ORIENTATION: Yes alert MENINGEAL SIGNS: Yes no meningeal signs Psych: COMMON NORMALS: mental status grossly normal Skin: COMMON NORMALS: no wounds RASHES: no rashes Discharge Data Studies Completed and Pending Completed Studies During Hospitalization Category Date Time Status CT abdomen pelvis wo con [id number] Urgent Cat Scan 09/13/21 09:48 Completed XR acute abdomen series [id number] Routine Exams 09/14/21 08:18 Completed Pending at discharge Category Date Time Status XR KUB [id number] AM LABS Exams 09/15/21 04:00 Ordered AMA [Mitochondrial AB Screen] Routine Lab 09/13/21 17:55 Received JOEL Profile Custom [[facility] JOEL Profile] Routine Lab 09/13/21 17:55 Received ANTI SMOOTH [Smooth Muscle AB Screen w/Refl] Routine Lab 09/13/21 17:55 Received Chlamydia / Gonorrhea Panel Routine Lab 09/14/21 08:27 Received Tick Panel Stat Lab 09/13/21 09:54 Results Radiology Impressions Abdomen/Pelvis CT 09/13/21 09:48 IMPRESSION: 1. Improved fluid distention of small bowel loops. 2. Severe distention of the cecum with fluid and fecal content. Cecum is deep within the pelvis and contacts the urinary bladder. At this time no ischemic changes or abscess or obstruction is identified. 3. Tiny amount of free fluid in the pelvis. 4. Prior cholecystectomy. 5. Periportal edema new since 12/28/2017. This can be seen with aggressive IV hydration or acute hepatitis. Chest/Abdomen X-ray 09/14/21 08:18 Impression: Negative acute abdomen series. Laboratory Results WBC 4.9 10^3/uL (4.0-10.0) 09/14/21 02:38 RBC 4.05 10^6/uL (4.1-5.3) L 09/14/21 02:38 Hgb 13.0 g/dL (11.5-15.3) 09/14/21 02:38 Hct 39.3 % (37.0-47.0) 09/14/21 02:38 MCV 97.0 fl (81-99) 09/14/21 02:38 MCH 32.1 pg (28.0-34.0) 09/14/21 02:38 MCHC 33.1 g/dL (30.0-36.0) 09/14/21 02:38 RDW 12.2 % (12.1-15.1) 09/14/21 02:38 Plt Count 141 10^3/cmm (130-400) 09/14/21 02:38 MPV 11.4 fL (7.4-10.4) H 09/14/21 02:38 Neut % (Auto) 69.3 % 09/14/21 02:38 Lymph % (Auto) 16.5 % 09/14/21 02:38 [place] % (Auto) 13.2 % 09/14/21 02:38 Eos % (Auto) 0.6 % 09/14/21 02:38 Baso % (Auto) 0.2 % 09/14/21 02:38 Neut # (Auto) 3.36 10^3/uL (1.8-7.7) 09/14/21 02:38 Lymph # (Auto) 0.8 10^3/uL (0.8-4.8) 09/14/21 02:38 [place] # (Auto) 0.6 10^3/uL (0.2-0.9) 09/14/21 02:38 Eos # (Auto) 0.0 10^3/uL (0.0-0.8) 09/14/21 02:38 Baso # (Auto) 0.0 10^3/uL (0.0-0.1) 09/14/21 02:38 Nucleated RBC % (auto) 0 % 09/14/21 02:38 Nucleated RBCs # 0.0 /100WBC 09/14/21 02:38 PT 16.90 SECONDS (12.1-14.9) H 09/14/21 02:38 INR 1.33 (0.8-1.2) H 09/14/21 02:38 APTT 24.6 SECONDS (23.9-36.7) 09/13/21 12:26 Sodium 141 mmol/L (136-145) 09/14/21 02:38 Potassium 3.6 mmol/L (3.5-5.1) 09/14/21 02:38 Chloride 109 mmol/L (98-107) H 09/14/21 02:38 Carbon Dioxide 24 mmol/L (22-29) 09/14/21 02:38 Anion Gap 11.6 (5-19) 09/14/21 02:38 BUN 12 mg/dL (6-20) 09/14/21 02:38 Creatinine 0.6 mg/dL (0.5-0.9) 09/14/21 02:38 GFR Calculation 118.2 mL/min (90-130) 09/14/21 02:38 Glucose 118 mg/dL (65-115) H 09/14/21 02:38 Calculated Osmolality 293 mOsm/kg (285-295) 09/14/21 02:38 Lactic Acid 2.0 mmol/L (0.5-2.2) 09/13/21 09:54 Lactate 1.5 mmol/L (0.5-2.2) 09/14/21 02:38 Calcium 8.0 mg/dL (8.5-10.5) L 09/14/21 02:38 Phosphorus 2.3 mg/dL (2.5-4.5) L 09/14/21 02:38 Magnesium 2.1 mg/dL (1.7-2.3) 09/14/21 02:38 Total Bilirubin 0.4 mg/dL (0.15-1.2) 09/14/21 02:38 AST 106 U/L (0-32) H 09/14/21 02:38 ALT 272 U/L (0-33) H 09/14/21 02:38 Alkaline Phosphatase 117 IU/L (35-105) H 09/14/21 02:38 Ammonia 34 umol/L (11-51) 09/14/21 02:38 C-Reactive Protein 14.9 mg/L (0.0-4.9) H 09/14/21 02:38 C-React Prot High Sens 1.630 mg/dL (0.0-0.3) H 09/14/21 02:38 Total Protein 5.6 g/dL (6.6-8.7) L D 09/14/21 02:38 Albumin 3.5 g/dL (3.5-5.2) 09/14/21 02:38 Globulin 2.1 g/dL (1.3-4.6) 09/14/21 02:38 Lipase 19 U/L (13-60) 09/14/21 02:38 Procalcitonin 0.20 ng/mL (0-0.5) 09/13/21 17:55 HCG, Qual Negative (Negative) 09/13/21 09:54 Urine Color Yellow (Yellow) 09/13/21 11:20 Urine Appearance Sl hazy (CLEAR) 09/13/21 11:20 Urine pH 7 (5-7) 09/13/21 11:20 Ur Specific [place] 1.010 (1.005-1.030) 09/13/21 11:20 Urine Protein Neg (Negative) 09/13/21 11:20 Urine Glucose (UA) Norm (Normal) 09/13/21 11:20 Urine Ketones 2+ (Negative) H 09/13/21 11:20 Urine Blood Neg (Negative) 09/13/21 11:20 Urine Nitrate Negative (Negative) 09/13/21 11:20 Urine Bilirubin 1+ (Negative) H 09/13/21 11:20 Urine Urobilinogen 8 mg/dL (Negative) H 09/13/21 11:20 Ur Leukocyte Esterase Negative (Negative) 09/13/21 11:20 Acetaminophen < 5.0 ug/mL (10-30) L 09/13/21 17:55 IgG 864 mg/dL (700-1600) 09/13/21 17:55 Lyme Ab (Western Blot) <0.90 index 09/13/21 09:54 Vitals Last Vital Signs Temp 98.0 F 09/14/21 04:00 Pulse 95 09/14/21 08:00 Resp 14 09/14/21 08:00 BP 123/74 09/14/21 08:00 Pulse Ox 96 09/14/21 08:00 Discharge Plan Discharge Patient Disposition: Home Condition: Stable Prescriptions: New Phospha 250 Neutral 250 mg tablet 1 tab PO DAILY Qty: 7 0RF Continued Multivitamins 28 mg iron- 800 mcg Tablet 1 tab PO DAILY 0RF levothyroxine 150 mcg tablet 150 mcg PO QAM 0RF ascorbic acid (vitamin C) [Vitamin C] 500 mg Tablet,Chewable 1,000 mg PO DAILY 0RF vitamin B complex Tablet 1 tab PO DAILY 0RF zinc 50 mg Tablet 50 mg PO DAILY 0RF Vitamin D3 125 mcg (5,000 unit) Tablet 1,125 mcg PO DAILY 0RF Adapten-All 2 cap PO DAILY 0RF ondansetron 4 mg tablet,disintegrating 4 mg PO Q8H PRN (Reason: nausea and vomiting) Qty: 15 0RF Discontinued naltrexone 50 mg Tablet 2 mg PO DAILY 0RF Rx Instructions: low-dose Discharge Orders: Discharge Order (Routine); Ordered 09/14/21 Ordered By: José Antonio Barreto Referrals: Jovani Sosa MD [Primary Care Provider] - 09/18/21 1:00 pm Discharge Diet: Advance as tolerated, Usual diet and Full LIquid Discharge Activity: Increase activity as tolerated Patient Instructions: Phosphate Supplement (By mouth) (Av-Phos 250 Neutral, K- Phos..., Enteritis (GEN) Activity Restrictions/Additional Instructions: Please follow-up with your primary doctor for reassessment after enteritis, hepatitis of unclear etiology, suspected possible viral enteritis and hepatitis given improvement in both GI symptoms and liver parameters. Cannot exclude other causes of hepatitis. Please hold naltrexone as it sometimes can cause hepatitis. Discussed with your primary doctor when this medication may be safe to resume. With similarly not resume the herbal supplement Adapten-All as it is not clear whether some of its ingredients can cause liver toxicity. Please discuss with your primary doctor. Avoid alcohol. Avoid more than 2000 mg of acetaminophen a day. Please have your primary doctor follow-up studies which are pending including autoimmune studies including JOEL profile, AMA, Anti smooth muscle antibodies, as well as chlamydia panel to assess for other possible causes of inflammation around the liver. Advance diet slowly from liquids to solids. Discuss with your doctor occasional episodes of constipation, noted distention of cecum on initial imaging. Consider addition of fruits and vegetables rich in fiber if possible, or fiber to meals to help avoid constipation. In case you experience further concerning symptoms, fever, abdominal pain, vomiting, inability to tolerate oral intake, severe diarrhea, bloody stools or other seek medical attention sooner. Please have your primary doctor also follow-up calcium and phosphorus levels. Both were found mildly low. Consider increasing calcium rich foods or adding calcium supplement. You are also provided with a course of phosphorus supplement. Please have your primary doctor follow-up also your heart rate during the next visit. While in hospital he had transient slow heart rate 40s-50s bpm, this was likely related to episodes of vomiting earlier and has so far resolved. Discharge Attestations Time Spent in Discharge Care*: greater than 30 min Quality Metrics Clinical Quality Measures [ No reported AMI, CVA or VTE this stay] Coding Level of Care Code Acute Chg FW DC note Exam Comprehensive Diagnoses Acute hepatitis B17.9 Enteritis K52.9 Elevated lipase R74.8 Dehydration E86.0 Javier's disease E06.3 Celiac disease K90.0 Elevated high sensitivity C-reactive protein R79.82
[2021-09-15 11:27] LABS: Anti-Double Strand DNA AB <1 IU/mL; Jo-1 Antibody <1.0 NEG AI (<1.0 NEG); SM/RNP Antibodies <1.0 NEG AI (<1.0 NEG); SS-B/LA IGG <1.0 NEG AI (<1.0 NEG); Scleroderma Ab(Scl-70) Ab <1.0 NEG AI (<1.0 NEG); Ss-A/Ro Igg <1.0 NEG AI (<1.0 NEG)
[2021-09-16 12:28] LABS: Smooth Muscle Ab Screen NEGATIVE (NEGATIVE)
[2021-09-18 17:17] LABS: E. Chaffeensis AB IGG <1:64; E. Chaffeensis AB IGM <1:20
[2021-09-20 17:02] LABS: RMSF IGG DETECTED; RMSF IGM NOT DETECTED
== END 2021-09-14 15:30 | disposition home or self-care (01) ==
LOC: ER 15:34 → MEDSURG 16:00
PROVIDERS: Physician Assistant; Admitting Provider Hospitalist; Emergency Provider Family Medicine; PCP Family Medicine; Visit Provider Internal Medicine
DX: K52.9 Noninfective gastroenteritis and colitis, unspecified (principal); B17.9 Acute viral hepatitis, unspecified; R74.8 Abnormal levels of other serum enzymes; E86.0 Dehydration; E06.3 Autoimmune thyroiditis; K90.0 Celiac disease; R79.82 Elevated C-reactive protein (CRP)
CPT/HCPCS: 36415; 74022; 74176; 80053; 80307; 81003; 82140; 82274; 82784; 83516; 83605; 83630; 83690; 83735; 84100; 84145; 84703; 85025; 85610; 85730; 86140; 86141; 86225; 86235; 86618; 86666; 86757; 87491; 87506; 87591; 93005; 96361; 96365; 96366; 96372; 96375; 96376; 99285; C9113; G0378; J1885; J2405; J2550; J2765; J7030

== ENCOUNTER 2021-09-29 04:16 | Emergency (ER) | payer BC, SELFPAY ==
[2021-09-29 04:23] VITALS: BP 129/88; PULSE 75; RESP 16; TEMP 37.7; O2SAT 97; BMI 19.8
--- NOTE | 2021-09-29 04:49 | W.ED.NAVMDI ---
Documented by User: Janes Truong MD 09/29/21 04:52 HPI - Nausea/Vomiting/Diarrhea General: Chief complaint: Nausea/Vomiting/Diarrhea Stated complaint: Vomiting Time Seen by Provider: 09/29/21 04:24 Source: patient Mode of arrival: ambulatory Limitations: no limitations History of Present Illness: 30-year-old female who was admitted recently for vomiting and colitis patient had a 1 day stay and then had a colonoscopy and EGD done yesterday. She states that she gets extremely ill with any type of anesthesia and since the procedure she has had vomiting and has not been able to tolerate any fluids. She states she does have some abdominal cramping but states it is mainly after vomiting and not an actual pain she rates it a 1 out of 10 she denies any diarrhea denies any worsening proving factors she has had oral Zofran and rectal Phenergan that she states has not helped. Associated nausea: Yes Associated symtoms: Reports nausea; Denies chest pain, dysuria or headache(s) Review of Systems Const: Denies: fever(s), chills, body aches or change in appetite Eyes: Denies: blurry vision or eye discomfort ENMT: Denies: throat pain or dental pain Card: Denies: chest pain Resp: Denies: dyspnea GI: Reports: abdominal pain, nausea and vomiting : Denies: dysuria Musc: Denies: neck pain or back pain Skin/Breast: Denies: rash Neuro: Denies: headache(s) Psych: Denies: depression Mane/Lymph: Denies: easy bruising All/Imm: Denies: urticaria PFSH ED PFSH: Medical History Celiac disease 1 para 1 Javier's disease thyroiditis Surgical History (Updated 09/13/21 @ 16:23 by Rema Romano MD) History of cholecystectomy History of lumpectomy of both breasts History of removal of ovarian cyst Family History Father Diabetes type I Family/Other Lupus Social History Smoking and tobacco status: never smoked Second hand smoke exposure: No Alcohol intake: current Alcohol intake frequency: holidays/special occasions only Household members: spouse and children Marital status: Physical Exam Const: COMMON NORMALS: no acute distress, patient oriented x3 and healthy appearing HENMT: COMMON NORMALS: normocephalic and atraumatic HEAD & SCALP: normocephalic and atraumatic Eye: COMMON NORMALS: Equal, round and reactive pupils present and EOMs intact bilaterally PUPIL: Yes Equal, round and reactive pupils present Neck/C-Spine: COMMON NORMALS: full ROM and supple Chest: COMMONS NORMALS: normal inspection of the chest and normal palpation of entire chest wall Resp: COMMON NORMALS: normal respiratory effort, No retractions, No use of accessory muscles and clear to auscultation bilaterally AUSCULTATION: clear to auscultation bilaterally Cardio: COMMON NORMALS: regular rate, regular rhythm and No murmurs present (Cardio) RATE: regular rate RHYTHM: regular rhythm GI: COMMON NORMALS: Normal to inspection, nondistended, normoactive bowel sounds present, Soft to palpation, non-tender and no masses PALPATION: Yes Soft to palpation Extremity: COMMON NORMALS: normal to inspection and full ROM Neuro: COMMON NORMALS: patient oriented x3, moves all extremities and no focal motor deficits Psych: COMMON NORMALS: mental status grossly normal, Normal thought process present and cooperative THOUGHT PROCESS: Normal thought process present Skin: COMMON NORMALS: no rashes or lesions noted and no wounds GENERAL SKIN EXAM: no rashes or lesions noted Course Vital Signs: Vital signs: Vital Signs Temperature 99.9 F H 09/29/21 04:23 Pulse Rate 83 09/29/21 06:30 Respiratory Rate 16 09/29/21 06:30 Blood Pressure 104/65 09/29/21 06:30 Pulse Oximetry 99 09/29/21 06:30 MDM - Nausea/Vomiting/Diarrhea Lab Data : 09/29/21 05:00 09/29/21 05:00 Laboratory Results WBC 11.5 10^3/uL (4.0-10.0) H 09/29/21 05:00 RBC 4.73 10^6/uL (4.1-5.3) 09/29/21 05:00 Hgb 14.9 g/dL (11.5-15.3) 09/29/21 05:00 Hct 44.5 % (37.0-47.0) 09/29/21 05:00 MCV 94.1 fl (81-99) 09/29/21 05:00 MCH 31.5 pg (28.0-34.0) 09/29/21 05:00 MCHC 33.5 g/dL (30.0-36.0) 09/29/21 05:00 RDW 11.6 % (12.1-15.1) L 09/29/21 05:00 Plt Count 248 10^3/cmm (130-400) 09/29/21 05:00 MPV 10.5 fL (7.4-10.4) H 09/29/21 05:00 Neut % (Auto) 83.5 % 09/29/21 05:00 Lymph % (Auto) 8.0 % 09/29/21 05:00 Bill[place] % (Auto) 7.9 % 09/29/21 05:00 Eos % (Auto) 0.1 % 09/29/21 05:00 Baso % (Auto) 0.2 % 09/29/21 05:00 Neut # (Auto) 9.60 10^3/uL (1.8-7.7) H 09/29/21 05:00 Lymph # (Auto) 0.9 10^3/uL (0.8-4.8) 09/29/21 05:00 Bill[place] # (Auto) 0.9 10^3/uL (0.2-0.9) 09/29/21 05:00 Eos # (Auto) 0.0 10^3/uL (0.0-0.8) 09/29/21 05:00 Baso # (Auto) 0.0 10^3/uL (0.0-0.1) 09/29/21 05:00 Nucleated RBC % (auto) 0 % 09/29/21 05:00 Nucleated RBCs # 0.0 /100WBC 09/29/21 05:00 Sodium 134 mmol/L (136-145) L 09/29/21 05:00 Potassium 4.3 mmol/L (3.5-5.1) 09/29/21 05:00 Chloride 100 mmol/L (98-107) 09/29/21 05:00 Carbon Dioxide 23 mmol/L (22-29) 09/29/21 05:00 Anion Gap 15.3 (5-19) 09/29/21 05:00 BUN 12 mg/dL (6-20) 09/29/21 05:00 Creatinine 0.6 mg/dL (0.5-0.9) 09/29/21 05:00 GFR Calculation 118.2 mL/min (90-130) 09/29/21 05:00 Glucose 117 mg/dL (65-115) H 09/29/21 05:00 Calculated Osmolality 279 mOsm/kg (285-295) L 09/29/21 05:00 Calcium 8.8 mg/dL (8.5-10.5) 09/29/21 05:00 Total Bilirubin 0.8 mg/dL (0.15-1.2) 09/29/21 05:00 AST 13 U/L (0-32) 09/29/21 05:00 ALT 18 U/L (0-33) 09/29/21 05:00 Alkaline Phosphatase 74 IU/L (35-105) 09/29/21 05:00 Total Protein 6.8 g/dL (6.6-8.7) 09/29/21 05:00 Albumin 4.8 g/dL (3.5-5.2) 09/29/21 05:00 Globulin 2.0 g/dL (1.3-4.6) 09/29/21 05:00 Lipase 20 U/L (13-60) 09/29/21 05:00 TSH 1.10 uIU/mL (0.27-4.20) 09/29/21 05:00 HCG, Qual Negative (Negative) 09/29/21 05:00 Discharge Plan Discharge Patient Disposition: Home Clinical Impression: Nausea and vomiting Condition: Stable Prescriptions: New promethazine 25 mg tablet 25 mg PO Q6H PRN (Reason: nausea and vomiting) Qty: 10 0RF Ativan 2 mg tablet 2 mg PO Q8H PRN (Reason: nausea and vomiting) Qty: 10 0RF No Action Multivitamins 28 mg iron- 800 mcg Tablet 1 tab PO DAILY 0RF levothyroxine 150 mcg tablet 150 mcg PO QAM 0RF ascorbic acid (vitamin C) [Vitamin C] 500 mg Tablet,Chewable 1,000 mg PO DAILY 0RF vitamin B complex Tablet 1 tab PO DAILY 0RF zinc 50 mg Tablet 50 mg PO DAILY 0RF Vitamin D3 125 mcg (5,000 unit) Tablet 1,125 mcg PO DAILY 0RF Adapten-All 2 cap PO DAILY 0RF Phospha 250 Neutral 250 mg tablet 1 tab PO DAILY Qty: 7 0RF ondansetron 4 mg tablet,disintegrating 4 mg PO Q8H PRN (Reason: nausea and vomiting) Qty: 15 0RF Discharge Orders: Discharge ED (Routine); Ordered 09/29/21 Ordered By: Checo Sam Referrals: Jovani Sosa MD [Primary Care Provider] - Discharge Diet: Clear Liquid Discharge Activity: Increase activity as tolerated Patient Instructions: Clear Liquid Diet (ED), Opioid Safety Activity Restrictions/Additional Instructions: Follow-up with your primary care doctor as needed. Clear liquid diet for 24 to 48 hours and advance slowly as tolerated. Sign Out Sign Out Data: Patient Sign Out occurred on 09/29/21 at 05:41. Patient's care was discussed, and care was transferred from to Checo Sam DO. Coding Level of Care Code ED Plant Production Manager for Chg Fwd Exam Comprehensive Documented by User: Checo Sam DO 09/29/21 06:47 HPI - Nausea/Vomiting/Diarrhea General: Chief complaint: Nausea/Vomiting/Diarrhea Stated complaint: Vomiting Time Seen by Provider: 09/29/21 04:24 [facility] ED PFSH: Medical History Celiac disease 1 para 1 Javier's disease thyroiditis Surgical History (Updated 09/13/21 @ 16:23 by Rema Romano MD) History of cholecystectomy History of lumpectomy of both breasts History of removal of ovarian cyst Family History Father Diabetes type I Family/Other Lupus Social History Smoking and tobacco status: never smoked Second hand smoke exposure: No Alcohol intake: current Alcohol intake frequency: holidays/special occasions only Household members: spouse and children Marital status: Course Vital Signs: Vital signs: Vital Signs Temperature 99.9 F H 09/29/21 04:23 Pulse Rate 83 09/29/21 06:30 Respiratory Rate 16 09/29/21 06:30 Blood Pressure 104/65 09/29/21 06:30 Pulse Oximetry 99 09/29/21 06:30 MDM - Nausea/Vomiting/Diarrhea Medical Decision Making Care assumed at change of shift from Dr. Truong. Patient is feeling much better after the fluids her nausea subsided. We will go and discharge her home she has been using Zofran and Phenergan at home. The Phenergan has been rectal suppositories as initially did not help and she ended up coming to the emergency room. We will give her Ativan to use as needed while that usually not first-line I have used it before as a antiemetic in more severe cases, also give her p.o. promethazine. Patient encouraged to clear liquid diet for the next 24 hours then advance as tolerated. Reviewed her labs with her we had seen her earlier this month and admitted with elevated liver enzymes that seems to have resolved and her liver and Simes have normalized. Follow-up with your primary care doctor as previously scheduled. Medical Records I reviewed the patient's medical records. Lab Data I reviewed the patient's lab results. : 09/29/21 05:00 09/29/21 05:00 Laboratory Results WBC 11.5 10^3/uL (4.0-10.0) H 09/29/21 05:00 RBC 4.73 10^6/uL (4.1-5.3) 09/29/21 05:00 Hgb 14.9 g/dL (11.5-15.3) 09/29/21 05:00 Hct 44.5 % (37.0-47.0) 09/29/21 05:00 MCV 94.1 fl (81-99) 09/29/21 05:00 MCH 31.5 pg (28.0-34.0) 09/29/21 05:00 MCHC 33.5 g/dL (30.0-36.0) 09/29/21 05:00 RDW 11.6 % (12.1-15.1) L 09/29/21 05:00 Plt Count 248 10^3/cmm (130-400) 09/29/21 05:00 MPV 10.5 fL (7.4-10.4) H 09/29/21 05:00 Neut % (Auto) 83.5 % 09/29/21 05:00 Lymph % (Auto) 8.0 % 09/29/21 05:00 Bill[place] % (Auto) 7.9 % 09/29/21 05:00 Eos % (Auto) 0.1 % 09/29/21 05:00 Baso % (Auto) 0.2 % 09/29/21 05:00 Neut # (Auto) 9.60 10^3/uL (1.8-7.7) H 09/29/21 05:00 Lymph # (Auto) 0.9 10^3/uL (0.8-4.8) 09/29/21 05:00 [place] # (Auto) 0.9 10^3/uL (0.2-0.9) 09/29/21 05:00 Eos # (Auto) 0.0 10^3/uL (0.0-0.8) 09/29/21 05:00 Baso # (Auto) 0.0 10^3/uL (0.0-0.1) 09/29/21 05:00 Nucleated RBC % (auto) 0 % 09/29/21 05:00 Nucleated RBCs # 0.0 /100WBC 09/29/21 05:00 Sodium 134 mmol/L (136-145) L 09/29/21 05:00 Potassium 4.3 mmol/L (3.5-5.1) 09/29/21 05:00 Chloride 100 mmol/L (98-107) 09/29/21 05:00 Carbon Dioxide 23 mmol/L (22-29) 09/29/21 05:00 Anion Gap 15.3 (5-19) 09/29/21 05:00 BUN 12 mg/dL (6-20) 09/29/21 05:00 Creatinine 0.6 mg/dL (0.5-0.9) 09/29/21 05:00 GFR Calculation 118.2 mL/min (90-130) 09/29/21 05:00 Glucose 117 mg/dL (65-115) H 09/29/21 05:00 Calculated Osmolality 279 mOsm/kg (285-295) L 09/29/21 05:00 Calcium 8.8 mg/dL (8.5-10.5) 09/29/21 05:00 Total Bilirubin 0.8 mg/dL (0.15-1.2) 09/29/21 05:00 AST 13 U/L (0-32) 09/29/21 05:00 ALT 18 U/L (0-33) 09/29/21 05:00 Alkaline Phosphatase 74 IU/L (35-105) 09/29/21 05:00 Total Protein 6.8 g/dL (6.6-8.7) 09/29/21 05:00 Albumin 4.8 g/dL (3.5-5.2) 09/29/21 05:00 Globulin 2.0 g/dL (1.3-4.6) 09/29/21 05:00 Lipase 20 U/L (13-60) 09/29/21 05:00 TSH 1.10 uIU/mL (0.27-4.20) 09/29/21 05:00 HCG, Qual Negative (Negative) 09/29/21 05:00 Discharge Plan Discharge Patient Disposition: Home Clinical Impression: Nausea and vomiting Condition: Stable Prescriptions: New promethazine 25 mg tablet 25 mg PO Q6H PRN (Reason: nausea and vomiting) Qty: 10 0RF Ativan 2 mg tablet 2 mg PO Q8H PRN (Reason: nausea and vomiting) Qty: 10 0RF No Action Multivitamins 28 mg iron- 800 mcg Tablet 1 tab PO DAILY 0RF levothyroxine 150 mcg tablet 150 mcg PO QAM 0RF ascorbic acid (vitamin C) [Vitamin C] 500 mg Tablet,Chewable 1,000 mg PO DAILY 0RF vitamin B complex Tablet 1 tab PO DAILY 0RF zinc 50 mg Tablet 50 mg PO DAILY 0RF Vitamin D3 125 mcg (5,000 unit) Tablet 1,125 mcg PO DAILY 0RF Adapten-All 2 cap PO DAILY 0RF Phospha 250 Neutral 250 mg tablet 1 tab PO DAILY Qty: 7 0RF ondansetron 4 mg tablet,disintegrating 4 mg PO Q8H PRN (Reason: nausea and vomiting) Qty: 15 0RF Discharge Orders: Discharge ED (Routine); Ordered 09/29/21 Ordered By: Checo Sam Referrals: Jvoani Sosa MD [Primary Care Provider] - Discharge Diet: Clear Liquid Discharge Activity: Increase activity as tolerated Patient Instructions: Clear Liquid Diet (ED), Opioid Safety Activity Restrictions/Additional Instructions: Follow-up with your primary care doctor as needed. Clear liquid diet for 24 to 48 hours and advance slowly as tolerated. Sign Out Sign Out Data: Patient Sign Out occurred on 09/29/21 at 05:41. Patient's care was discussed, and care was transferred from to Checo Sam DO. Coding Level of Care Code ED Plant Production Manager for Chg Fwd Exam Comprehensive
[2021-09-29 05:05] VITALS: BP 129/72; PULSE 88; RESP 16; O2SAT 99
[2021-09-29] MEDS: sodium chloride 0.9% 1,000 ML 999 ML IV (05:05)
[2021-09-29 05:14] LABS: Basophils % 0.2 %; Eosinophils % 0.1 %; Hematocrit 44.5 % (37.0-47.0); Hemoglobin 14.9 g/dL (11.5-15.3); Lymphocytes # 0.9 10^3/uL (0.8-4.8); Mean Corpuscular HGB Conc 33.5 g/dL (30.0-36.0); Mean Corpuscular Hemoglobin 31.5 pg (28.0-34.0); Mean Corpuscular Volume 94.1 fl (81-99); Mean Platelet Volume 10.5 fL (7.4-10.4); Monocytes # 0.9 10^3/uL (0.2-0.9); Monocytes % 7.9 %; Neutrophils % 83.5 %; Nucleated Red Blood Cells % 0 %; Platelet Count 248 10^3/cmm (130-400); Red Blood Count 4.73 10^6/uL (4.1-5.3); Red Cell Distribution Width 11.6 % (12.1-15.1); White Blood Count 11.5 10^3/uL (4.0-10.0)
[2021-09-29] MEDS: diphenhydrAMINE 50 mg/mL SDV 1mL IVP (05:16)
[2021-09-29] MEDS: metoclopramide 5 mg/mL SDV 2 mL 10 MG IVP (05:23)
[2021-09-29 05:37] LABS: HCG, Serum Qual Negative (Negative)
[2021-09-29 05:44] LABS: Alanine Aminotransferase 18 U/L (0-33); Albumin Level 4.8 g/dL (3.5-5.2); Alkaline Phosphatase 74 IU/L (35-105); Anion Gap 15.3 (5-19); Aspartate Amino Transferase 13 U/L (0-32); Blood Urea Nitrogen 12 mg/dL (6-20); Calcium 8.8 mg/dL (8.5-10.5); Carbon Dioxide 23 mmol/L (22-29); Chloride 100 mmol/L (98-107); Glomerular Filtration Rate 118.2 mL/min (90-130); Glucose 117 mg/dL (65-115); Lipase 20 U/L (13-60); Osmolality Calculated 279 mOsm/kg (285-295); Potassium 4.3 mmol/L (3.5-5.1); Sodium 134 mmol/L (136-145); Total Bilirubin 0.8 mg/dL (0.15-1.2); Total Protein 6.8 g/dL (6.6-8.7)
[2021-09-29 05:50] VITALS: BP 106/66; PULSE 86; RESP 16; O2SAT 98
[2021-09-29 06:30] VITALS: BP 104/65; PULSE 83; RESP 16; O2SAT 99
[2021-09-29 06:45] LABS: Add Urine Microscopic? NO; Charge for UA Resulting for Rev
[2021-09-29 07:01] VITALS: BP 112/71; PULSE 92; RESP 16; O2SAT 99
[2021-09-29 07:03] LABS: Specific Gravity, Urine 1.015 (1.005-1.030); Urine Appearance Clear (CLEAR); Urine Color Straw (Yellow); pH Urine 5 (5-7)
[2021-09-29 07:04] LABS: Bilirubin Urine Neg (Negative); Blood Urine Neg (Negative); Glucose Urine UA Norm (Normal); Ketones Urine 2+ (Negative); Leukocyte Esterase Urine Negative (Negative); Nitrate Urine Negative (Negative); Protein Urine Neg (Negative); Urobilinogen Urine Norm (Negative)
== END 2021-09-29 06:50 | disposition home or self-care (01) ==
PROVIDERS: Emergency Medicine; Emergency Provider Family Medicine; PCP Family Medicine
DX: R11.2 Nausea with vomiting, unspecified (principal); K90.0 Celiac disease; E06.3 Autoimmune thyroiditis; Z90.49 Acquired absence of other specified parts of digestive tract
CPT/HCPCS: 80053; 81003; 83690; 84443; 84703; 85025; 96361; 96374; 96375; 99284; J1200; J2765; J7030

== ENCOUNTER 2023-08-30 14:03 | Emergency (ER) | payer BC, SELFPAY ==
[2023-08-30 14:09] VITALS: BP 132/83; PULSE 85; RESP 16; TEMP 36.6; O2SAT 100
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
[2023-08-30 15:41] VITALS: BP 115/70; PULSE 73; O2SAT 98
== END 2023-08-30 15:44 | disposition home or self-care (01) ==
PROVIDERS: Emergency Provider Physician Assistant; PCP Family Medicine
DX: S13.9XXA Sprain of joints and ligaments of unspecified parts of neck, initial encounter (principal); V89.2XXA Person injured in unspecified motor-vehicle accident, traffic, initial encounter
CPT/HCPCS: 70450; 72125; 99284